=== PATIENT | male | born 1970 | race Caucasian/White ===

== ENCOUNTER → 2017-11-27 | Outpatient (CLI) | payer BC ==
--- NOTE | 2017-11-27 10:52 | XR ---
EXAMINATION TYPE: XR knee complete RT DATE OF EXAM: 11/27/2017 CLINICAL HISTORY: pain TECHNIQUE: Three views of the right knee are obtained. COMPARISON: None. FINDINGS: There is no acute fracture/dislocation. The tri-compartment joint spaces appear within no rmal limits. The overlying soft tissue appears unremarkable. IMPRESSION: There is no acute fracture or dislocation.ICD 10 NO FRACTURE, INITIAL EVALUATION
== END | disposition home or self-care (01) ==
LOC: RADXRMAIN 10:31
PROVIDERS: ATTEND Physician Assistant
DX: M79.604 Pain in right leg (principal)

== ENCOUNTER → 2018-09-28 | Outpatient (CLI) | payer BC ==
--- NOTE | 2018-09-28 19:26 | XR ---
EXAMINATION TYPE: XR skull complete DATE OF EXAM: 09/28/2018 COMPARISON: NONE HISTORY: Pain TECHNIQUE: 5 views submitted FINDINGS: There is a soft tissue density within the maxillary sinuses bilaterally. Nasal septal devia tion noted a suggestion of a deformity of the left mandibular condyle. IMPRESSION: 1. Findings are suspicious for a left mandibular fracture. Recommend CT of the facial bones. 2. Nonspecific soft tissue density in the maxillary sinuses could be postinflammatory, other etiologi es not excluded. Correlate clinically. A [place] level critical message alert has been initiated for Bert Daniel DO via the [facility] on 09/28/2018 7:22 PM. This message alert has been sent to Bert Evans nd, DO via the preferences provided by the clinician for the receipt of Radiology Critical Findings. Message ID [id number].
== END | disposition home or self-care (01) ==
LOC: RADXRMAIN 16:27
PROVIDERS: ATTEND Family Medicine
DX: R51 Headache (principal)
CPT/HCPCS: 70260

== ENCOUNTER → 2022-01-31 | Outpatient (CLI) | payer BC | END | disposition home or self-care (01) | LOC: RADMRIMAIN 15:25 | PROVIDERS: ATTEND Psychiatry & Neurology Neurology | DX: Z53.9 Procedure and treatment not carried out, unspecified reason (principal) ==

== ENCOUNTER → 2022-02-07 | Outpatient (CLI) | payer BC ==
--- NOTE | 2022-02-07 12:56 | MR ---
EXAMINATION TYPE: MR lumbar spine wo con DATE OF EXAM: 02/07/2022 COMPARISON: None HISTORY: Low back pain that radiates down left and right leg. TECHNIQUE: Multiplanar, multisequence images of the lumbar spine were acquired without IV contrast. FINDINGS: Lumbar segments are intact. No paraspinal masses are identified. Conus medullaris has a normal appe arance. Disc desiccation present at L5-S1 and L4-L5. Type II Modic changes at L5-S1. Straightening of the lumbar spine. No spondylolisthesis. L1-L2: Normal disc appearance without desiccation. No herniation, protrusion or disc bulging. No ca nal stenosis is present. Foramina are patent bilaterally. L2-L3: Normal disc appearance without desiccation. No herniation, protrusion or disc bulging. No ca nal stenosis is present. Foramina are patent bilaterally. L3-L4: Normal disc appearance without desiccation. No herniation, protrusion or disc bulging. No ca nal stenosis is present. Foramina are patent bilaterally. L4-L5: Right central disc protrusion with effacement of the exiting right L4 nerve root and traversin g L5 nerve root. Annular tear demonstrated. There is moderate effacement of the anterior thecal sac a t this level on the right. Facet arthropathy. Mild bilateral neural foraminal stenosis. L5-S1: Broad-based disc bulge without significant central canal stenosis. Facet arthropathy demonstra luke. Moderate bilateral neural foramen stenosis. a IMPRESSION: 1. L4-L5 disc herniation with moderate spinal canal stenosis and mild bilateral neuroforaminal steno sis at this level. 2. L5-S1 disc bulge and facet arthropathy with moderate bilateral neural foraminal stenosis.
== END | disposition home or self-care (01) ==
LOC: RADMRIMAIN 11:28
PROVIDERS: ATTEND Psychiatry & Neurology Neurology
DX: M51.26 Other intervertebral disc displacement, lumbar region (principal); M48.062 Spinal stenosis, lumbar region with neurogenic claudication; M99.73 Connective tissue and disc stenosis of intervertebral foramina of lumbar region; M51.27 Other intervertebral disc displacement, lumbosacral region; M48.061 Spinal stenosis, lumbar region without neurogenic claudication
CPT/HCPCS: 72148

== ENCOUNTER 2022-08-31 16:03 | Inpatient (IN) | payer BC, OTHER ==
--- NOTE | 2022-08-31 16:25 | ED ---
General Adult HPI - General Chief complaint: Seizure Stated complaint: Seizures Time Seen by Provider: 08/31/22 16:21 Source: patient, EMS Mode of arrival: EMS Limitations: no limitations - History of Present Illness Initial comments: Patient was transferred to our emergency department from the [facility] emergency department by ambulance. Patient reports presenting there after having a witnessed seizure earlier today (witnessed by his family while they were camping today). Per report from outside hospital, the patient's sodium was 118 today, and he has been treated with an IV normal saline drip. Patient states that he had a seizure once about a couple of years ago when his sodium was low as well. Patient denies having any other seizures, and he denies taking any antiepileptic medications. Patient admits to drinking about 5-6 be ers daily on average, and he states that his last drink was last night. Patient denies having any pain, fever or chills, head trauma or injury, headache, focal numbness/weakness/neuro deficit, visual changes, speech difficulty, neck/back/extremity pain, chest pain, dyspnea, cough or cold symptoms, palpitations, dizziness, abdominal pain, nausea/vomiting/diarrhea, bloody or melanotic stool, dysuria or urinary symptoms, or any other symptoms or complaints. Patient denies illicit drug use or medication abuse/overdose. Patient outside hospital labs were reviewed myself and are significant for a sodium of 118 and mildly elevated transaminases. - Related Data Allergies Allergy/AdvReac Type Severity Reaction Status Date / Time No Known Allergies Allergy Verified 08/31/22 16:22 Review of Systems ROS Statement: Those systems with pertinent positive or pertinent negative responses have been documented in the HPI. ROS Other: All systems not noted in ROS Statement are negative. Past Medical History Past Medical History: Hypertension History of Any Multi-Drug Resistant Organisms: None Reported Additional Past Surgical History / Comment(s): Left femur repair, December 2020 Past Psychological History: Anxiety Smoking Status: Current every day smoker Past Alcohol Use History: Daily Past Drug Use History: None Reported General Exam Limitations: no limitations General appearance: alert Head exam: Present: atraumatic, normocephalic Eye exam: Present: normal appearance, PERRL, EOMI ENT exam: Present: mucous membranes moist, TM's normal bilaterally Neck exam: Present: other (Trachea is in midline). Absent: tenderness, meningismus Respiratory exam: Present: normal lung sounds bilaterally. Absent: respiratory distress, wheezes, rales, rhonchi, stridor Cardiovascular Exam: Present: regular rate, normal rhythm, normal heart sounds, other (2+ radial pulses bilaterally) GI/Abdominal exam: Present: soft. Absent: distended, tenderness, guarding Extremities exam: Absent: tenderness, pedal edema Back exam: Present: normal inspection. Absent: tenderness Neurological exam: Present: alert, oriented X3, CN II-XII intact. Absent: motor sensory deficit Psychiatric exam: Present: normal affect, normal mood Skin exam: Present: warm, dry, intact, normal color Course Vital Signs 08/31/22 08/31/22 08/31/22 16:14 16:24 18:21 Temperature 98.3 F Pulse Rate 93 109 H Respiratory 20 Rate Blood Pressure 142/101 156/44 O2 Sat by Pulse 95 Oximetry - Reevaluation(s) Reevaluation #1: 08/31/22 18:59 Case, H&P, test results and ED management thus far were discussed with Dr. Piña. He accepts hospital admission. He recommends nephrology consultation. He has no further recommendations at this time. 08/31/22 19:15 Patient has not had any seizure activity while in the ED. Patient continues to have a normal/nonfocal neurological exam. Patient remains alert and breathing comfortably. Patient and family are aware of the patient's test results, and patient agrees with hospital admission at this time. EKG Findings - EKG Comments: EKG Findings:: ED physician interpretation (interpreted by me): EKG is somewhat limited due to motion, sinus tachycardia, ventricular rate 112 bpm, no ectopy, normal UT and QRS intervals, normal QT interval, normal axis, no definite ST or T-wave abnormality Medical Decision Making - Medical Decision Making Was pt. sent in by a medical professional or institution (, PA, WAD COMPRESSOR OPERATOR ADJUSTER, urgent care, hospital, or detention...) When possible be specific @ -Patient was sent from [facility] ED. Did you speak to anyone other than the patient for history (EMS, parent, family, police, friend...)? What history was obtained from this source @ -History was also obtained from the outside hospital transferring physician. Did you review nursing and triage notes (agree or disagree)? Why? @ -I reviewed and agree with nursing and triage notes Were old charts reviewed (outside hosp., previous admission, EMS record, old EKG, old radiological studies, urgent care reports/EKG's, detention records)? Report findings @ -I have reviewed the outside hospital records and lab results. Differential Diagnosis (chest pain, altered mental status, abdominal pain women, abdominal pain men, vaginal bleeding, weakness, fever, dyspnea, syncope, headache, dizziness, GI bleed, back pain, seizure, CVA, palpatations, mental health, musculoskeletal)? @ -Seizure, epilepsy, hyponatremia, drug abuse, drug withdrawal, alcohol withdrawal, alcohol abuse, electrolyte abnormality, hypoglycemia, hyperglycemia, dehydration, syncope, dysrhythmia EKG interpreted by me (3pts min.). @ -As above X-rays interpreted by me (1pt min.). @ -None done CT interpreted by me (1pt min.). @ -None done U/S interpreted by me (1pt. min.). @ -None done What testing was considered but not performed or refused? (CT, X-rays, U/S, labs)? Why? @ -None What meds were considered but not given or refused? Why? @ -None Did you discuss the management of the patient with other professionals (professionals i.e. , PA, WAD COMPRESSOR OPERATOR ADJUSTER, lab, RT, psych nurse, social science instructor, special day class teacher, teacher, life science technical officer, hospice case manager)? Give summary @ -As above Was smoking cessation discussed for >3mins.? @ -No Was critical care preformed (if so, how long)? @ -No Were there social determinants of health that impacted care today? How? (Homelessness, low income, unemployed, alcoholism, drug addiction, transportation, low edu. Level, literacy, decrease access to med. care, fci, rehab)? @ -No Was there de-escalation of care discussed even if they declined (Discuss DNR or withdrawal of care, Hospice)? DNR status @ -No What co-morbidities impacted this encounter? (DM, HTN, Smoking, COPD, CAD, Cancer, CVA, ARF, Chemo, Hep., AIDS, mental health diagnosis, sleep apnea, morbid obesity)? @ -Alcohol abuse Was patient admitted / discharged? Hospital course, mention meds given and route, prescriptions, significant lab abnormalities, going to OR and other pertinent info. @ -Patient has not had any seizure activity while in the ED. Patient's repeat sodium level has improved from 118 to 125. Will continue normal saline IV infusion therapy. Patient has also been treated with IV Ativan in the ED. Patient has a normal/nonfocal neurological exam. Patient denies head trauma/injury or headache. I do not feel that head imaging is indicated at this time. Will admit the patient to the hospital for continued management of his h yponatremia. Dr. Piña has accepted hospital admission. Undiagnosed new problem with uncertain prognosis? @ -No Drug Therapy requiring intensive monitoring for toxicity (Heparin, Nitro, Insulin, Cardizem)? @ -No Were any procedures done? @ -No Diagnosis/symptom? @ -Seizure Acute, or Chronic, or Acute on Chronic? @ -Acute Uncomplicated (without systemic symptoms) or Complicated (systemic symptoms)? @ -default Side effects of treatment? @ -No Exacerbation, Progression, or Severe Exacerbation? @ -No Poses a threat to life or bodily function? How? (Chest pain, [place], [place], pneumonia, PE, COPD, DKA, ARF, appy, cholecystitis, CVA, Diverticulitis, Homicidal, Suicidal, threat to staff... and all critical care pts) @ -No Diagnosis/symptom? @ -Hyponatremia Acute, or Chronic, or Acute on Chronic? @ -Acute Uncomplicated (without systemic symptoms) or Complicated (systemic symptoms)? @ -default Side effects of treatment? @ -none Exacerbation, Progression, or Severe Exacerbation] @ -no Poses a threat to life or bodily function? @ -no - Lab Data Result diagrams: 08/31/22 16:38 08/31/22 16:38 Lab Results 08/31/22 08/31/22 08/31/22 Range/Units 16:38 16:38 16:38 WBC 9.0 (3.8-10.6) k/uL RBC 3.66 L (4.30-5.90) m/uL Hgb 13.2 (13.0-17.5) gm/dL Hct 38.6 L (39.0-53.0) % MCV 105.6 H (80.0-100.0) fL MCH 36.1 H (25.0-35.0) pg MCHC 34.2 (31.0-37.0) g/dL RDW 13.2 (11.5-15.5) % Plt Count 197 (150-450) k/uL MPV 8.8 Neutrophils % 78 % Lymphocytes % 14 % Monocytes % 5 % Eosinophils % 2 % Basophils % 0 % Neutrophils # 7.0 (1.3-7.7) k/uL Lymphocytes # 1.3 (1.0-4.8) k/uL Monocytes # 0.4 (0-1.0) k/uL Eosinophils # 0.1 (0-0.7) k/uL Basophils # 0.0 (0-0.2) k/uL Macrocytosis Slight Sodium 125 L (137-145) mmol/L Potassium 4.9 (3.5-5.1) mmol/L Chloride 93 L (98-107) mmol/L Carbon Dioxide 21 L (22-30) mmol/L Anion Gap 11 mmol/L BUN 4 L (9-20) mg/dL Creatinine 0.56 L (0.66-1.25) mg/dL Est GFR (CKD-EPI)AfAm >90 (>60 ml/min/1.73 sqM) Est GFR (CKD-EPI)NonAf >90 (>60 ml/min/1.73 sqM) Glucose 92 (74-99) mg/dL Calcium 9.0 (8.4-10.2) mg/dL Magnesium 1.9 (1.6-2.3) mg/dL Total Bilirubin 1.0 (0.2-1.3) mg/dL AST 147 H (17-59) U/L ALT 108 H (4-49) U/L Alkaline Phosphatase 112 (38-126) U/L Total Protein 7.7 (6.3-8.2) g/dL Albumin 4.4 (3.5-5.0) g/dL Urine Opiates Screen Not Detected (NotDetected) Ur Oxycodone Screen Not Detected (NotDetected) Urine Methadone Screen Not Detected (NotDetected) Ur Propoxyphene Screen Not Detected (NotDetected) Ur Barbiturates Screen Not Detected (NotDetected) U Tricyclic Antidepress Not Detected (NotDetected) Ur Phencyclidine Scrn Not Detected (NotDetected) Ur Amphetamines Screen Not Detected (NotDetected) U Methamphetamines Scrn Not Detected (NotDetected) U Benzodiazepines Scrn Not Detected (NotDetected) Urine Cocaine Screen Not Detected (NotDetected) U Marijuana (THC) Screen Not Detected (NotDetected) Serum Alcohol <10 mg/dL Disposition Clinical Impression: Hyponatremia, Generalized seizure Disposition: ADMITTED IP TO THIS HOSP Condition: Stable Is patient prescribed a controlled substance at d/c from ED?: No Referrals: None,Stated [REFERRING] - 1-2 days Time of Disposition: 18:59
[2022-08-31] MEDS ORDERED: LORazepam 2 MG/ML INJ IV STA (16:31)
[2022-08-31 17:04] LABS: Basophils % (A) 0 %; Eosinophils # (A) 0.1 k/uL (0-0.7); Eosinophils % (A) 2 %; HCT 38.6 % (39.0-53.0); HGB 13.2 gm/dL (13.0-17.5); Lymphocytes # (A) 1.3 k/uL (1.0-4.8); Lymphocytes % (A) 14 %; MCH 36.1 pg (25.0-35.0); MCHC 34.2 g/dL (31.0-37.0); MCV 105.6 fL (80.0-100.0); Macrocytosis Slight; Mean Platelet Volume 8.8; Monocytes # (A) 0.4 k/uL (0-1.0); Monocytes % (A) 5 %; Neutrophils % (A) 78 %; Platelet Count 197 k/uL (150-450); RBC 3.66 m/uL (4.30-5.90); RDW 13.2 % (11.5-15.5)
[2022-08-31 17:18] LABS: Amphetamine Screen,Urine Not Detected (NotDetected); Barbiturate Screen,Urine Not Detected (NotDetected); Benzodiazepines Screen,Urine Not Detected (NotDetected); Cocaine Screen,Urine Not Detected (NotDetected); Methadone Screen, Urine Not Detected (NotDetected); Opiate Screen,Urine Not Detected (NotDetected); Oxycodone Screen, Urine Not Detected (NotDetected); Phencyclidine Screen,Urine Not Detected (NotDetected); Tricyclic Antidepressant,Urine Not Detected (NotDetected); Urn Cannabinoid Scrn Not Detected (NotDetected)
[2022-08-31 17:19] LABS: ALT 108 U/L (4-49); AST 147 U/L (17-59); African American GFR (CKD) >90 (>60 ml/min/1.73 sqM); Albumin 4.4 g/dL (3.5-5.0); Alcohol <10 mg/dL; Alkaline Phosphatase 112 U/L (38-126); Anion Gap 11 mmol/L; Blood Urea Nitrogen 4 mg/dL (9-20); Carbon Dioxide 21 mmol/L (22-30); Chloride 93 mmol/L (98-107); Glucose 92 mg/dL (74-99); Magnesium 1.9 mg/dL (1.6-2.3); Non-African American GFR(CKD) >90 (>60 ml/min/1.73 sqM); Potassium 4.9 mmol/L (3.5-5.1); Sodium 125 mmol/L (137-145); Total Protein 7.7 g/dL (6.3-8.2)
[2022-08-31] MEDS: SODIUM CHLORIDE 0.9% 1,000 ML IV SCH (17:23)
[2022-08-31] MEDS ORDERED: NALOXONE 0.4 MG/ML 1 ML VIAL IV PRN (18:59)
[2022-08-31] MEDS ORDERED: THIAMINE 100 MG/ML 2 ML VIAL IM STA (20:15)
[2022-08-31 20:28] LABS: Basophils % (A) 0 %; Eosinophils # (A) 0.2 k/uL (0-0.7); Eosinophils % (A) 2 %; HCT 35.4 % (39.0-53.0); HGB 12.7 gm/dL (13.0-17.5); Lymphocytes # (A) 0.9 k/uL (1.0-4.8); Lymphocytes % (A) 8 %; MCH 37.7 pg (25.0-35.0); MCHC 35.8 g/dL (31.0-37.0); MCV 105.3 fL (80.0-100.0); Macrocytosis Slight; Monocytes # (A) 0.4 k/uL (0-1.0); Monocytes % (A) 3 %; Neutrophils % (A) 86 %; Platelet Count 172 k/uL (150-450); RBC 3.36 m/uL (4.30-5.90); RDW 13.1 % (11.5-15.5); WBC 11.6 k/uL (3.8-10.6)
[2022-08-31] MEDS: LORazepam 2 MG/ML INJ IV PRN ×2 (20:35→23:54)
[2022-08-31 20:44] LABS: ALT 97 U/L (4-49); AST 134 U/L (17-59); African American GFR (CKD) >90 (>60 ml/min/1.73 sqM); Albumin 4.1 g/dL (3.5-5.0); Alkaline Phosphatase 97 U/L (38-126); Anion Gap 12 mmol/L; Blood Urea Nitrogen 5 mg/dL (9-20); Calcium 8.8 mg/dL (8.4-10.2); Carbon Dioxide 20 mmol/L (22-30); Chloride 94 mmol/L (98-107); Glucose 103 mg/dL (74-99); Non-African American GFR(CKD) >90 (>60 ml/min/1.73 sqM); Potassium 4.1 mmol/L (3.5-5.1); Sodium 126 mmol/L (137-145); Total Bilirubin 0.9 mg/dL (0.2-1.3); Total Protein 7.2 g/dL (6.3-8.2)
[2022-09-01] MEDS: SODIUM CHLORIDE 0.9% 1,000 ML IV SCH ×4 (01:31→22:59)
[2022-09-01] MEDS: LORazepam 2 MG/ML INJ IV PRN ×6 (08:22→22:55)
[2022-09-01] MEDS: THIAMINE 100 MG TAB PO SCH (08:22)
[2022-09-01] MEDS: NICOTINE 21MG/24HR PATCH TRANSDERM SCH (11:47)
[2022-09-01] MEDS: PANTOPRAZOLE 40 MG/10 ML VIAL IVP SCH (11:51)
--- NOTE | 2022-09-01 13:06 | P.HPIM ---
History of Present Illness 58-year-old male was transferred to [facility] after he had a seizure. Patient's seizures secondary to hyponatremia which is again secondary to excess be drinking. Patient is not willing to quit but his sodium is still l ow at 126. This came up from 118 in bit over 24 hours. Patient does smoke and half pack of cigarettes per day. Patient admits to drinking 67 beers but as per the family he drinks many more. Last drink was provided that is 2 days ago. REVIEW OF SYSTEMS: CONSTITUTIONAL: No fever, no malaise, no fatigue. HEENT: No recent visual problems or hearing problems. Denied any sore throat. CARDIOVASCULAR: No chest pain, orthopnea, PND, no palpitations, no syncope. PULMONARY: No shortness of breath, no cough, no hemoptysis. GASTROINTESTINAL: No diarrhea, no nausea, no vomiting, no abdominal pain. NEUROLOGICAL: No headaches, no weakness, no numbness. HEMATOLOGICAL: Denies any bleeding or petechiae. GENITOURINARY: Denies any burning micturition, frequency, or urgency. MUSCULOSKELETAL/RHEUMATOLOGICAL: Denies any joint pain, swelling, or any muscle pain. ENDOCRINE: Denies any polyuria or polydipsia. The rest of the 14-point review of systems is negative. PHYSICAL EXAMINATION: GENERAL: The patient is alert and oriented x3, not in any acute distress. Well developed, well nourished. Patient does have significant was consistent with alcohol withdrawal HEENT: Pupils are round and equally reacting to light. EOMI. No scleral icterus. No conjunctival pallor. Normocephalic, atraumatic. No pharyngeal erythema. No thyromegaly. CARDIOVASCULAR: S1 and S2 present. No murmurs, rubs, or gallops. PULMONARY: Chest is clear to auscultation, no wheezing or crackles. ABDOMEN: Soft, nontender, nondistended, normoactive bowel sounds. No palpable organomegaly. MUSCULOSKELETAL: No joint swelling or deformity. EXTREMITIES: No cyanosis, clubbing, or pedal edema. NEUROLOGICAL: Gross neurological examination did not reveal any focal deficits. SKIN: No rashes. Assessment and plan -Alcohol withdrawal seizures. For alcohol withdrawal with as needed Ativan in severity of protocol. Patient will be given IV fluids thiamine multivitamin supplementation. -Severe hyponatremia: Secondary to hypovolemia and Beer [place]. -Leukocytosis reactive -Sinus tachycardia secondary to alcohol withdrawal: We will use metoprolol. -Acute alcoholic hepatitis DVT prophylaxis: Lovenox GI prophylaxis: Protonix Past Medical History Past Medical History: Hypertension History of Any Multi-Drug Resistant Organisms: None Reported Additional Past Surgical History / Comment(s): Left femur repair, December 2020 Past Anesthesia/Blood Transfusion Reactions: No Reported Reaction Past Psychological History: Anxiety Smoking Status: Current every day smoker Past Alcohol Use History: Daily Past Drug Use History: None Reported Medications and Allergies Home Medications Medication Instructions Recorded Confirmed Type Ibuprofen [Motrin] 800 mg PO Q8H PRN 08/31/22 08/31/22 History Sodium Chloride Tab 1 gm PO BID 08/31/22 08/31/22 History amLODIPine [Norvasc] 5 mg PO W/SUPPER 08/31/22 08/31/22 History lisinopriL 40 mg PO DAILY 08/31/22 08/31/22 History Allergies Allergy/AdvReac Type Severity Reaction Status Date / Time No Known Allergies Allergy Verified 08/31/22 19:41 Physical Exam Vitals: Vital Signs Temp Pulse Pulse Resp BP BP Pulse Ox 09/01/22 13:04 98.2 F 95 18 127/78 98 09/01/22 12:47 98 09/01/22 07:56 97.6 F 106 H 18 129/86 95 09/01/22 01:45 98.7 F 104 H 20 118/78 96 08/31/22 22:48 122 H 08/31/22 21:15 99.0 F 123 H 20 124/77 95 08/31/22 20:11 126 H 16 122/79 95 08/31/22 18:21 109 H 08/31/22 16:24 98.3 F 156/44 08/31/22 16:14 93 20 142/101 95 Intake and Output 08/31/22 09/01/22 09/01/22 22:59 06:59 14:59 Intake Total 1170 Output Total 3 Balance 1167 Intake: Intake, IV Titration 1170 Amount Sodium Chloride 0.9% 1, 1170 000 ml @ 130 mls/hr IV . [facility] Rx[facility][id number] Output: Urine 3 Other: Voiding Method Urinal # Voids 3 # Bowel Movements 1 Weight 72.575 kg Results CBC & Chem 7: 08/31/22 19:22 08/31/22 19:22 Labs: Abnormal Lab Results - Last 24 Hours (Table) 08/31/22 08/31/22 08/31/22 Range/Units 16:38 16:38 19:22 WBC 11.6 H (3.8-10.6) k/uL RBC 3.66 L 3.36 L (4.30-5.90) m/uL Hgb 12.7 L (13.0-17.5) gm/dL Hct 38.6 L 35.4 L (39.0-53.0) % MCV 105.6 H 105.3 H (80.0-100.0) fL MCH 36.1 H 37.7 H (25.0-35.0) pg Neutrophils # 10.0 H (1.3-7.7) k/uL Lymphocytes # 0.9 L (1.0-4.8) k/uL Sodium 125 L (137-145) mmol/L Chloride 93 L (98-107) mmol/L Carbon Dioxide 21 L (22-30) mmol/L BUN 4 L (9-20) mg/dL Creatinine 0.56 L (0.66-1.25) mg/dL Glucose (74-99) mg/dL AST 147 H (17-59) U/L ALT 108 H (4-49) U/L 08/31/22 Range/Units 19:22 WBC (3.8-10.6) k/uL RBC (4.30-5.90) m/uL Hgb (13.0-17.5) gm/dL Hct (39.0-53.0) % MCV (80.0-100.0) fL MCH (25.0-35.0) pg Neutrophils # (1.3-7.7) k/uL Lymphocytes # (1.0-4.8) k/uL Sodium 126 L (137-145) mmol/L Chloride 94 L (98-107) mmol/L Carbon Dioxide 20 L (22-30) mmol/L BUN 5 L (9-20) mg/dL Creatinine 0.49 L (0.66-1.25) mg/dL Glucose 103 H (74-99) mg/dL AST 134 H (17-59) U/L ALT 97 H (4-49) U/L Thrombosis Risk Factor Assmnt - Choose All That Apply Any of the Below Risk Factors Present?: Yes Each Factor Represents 1 point: Age 41-60 years Other Risk Factors: No Other congenital or acquired thrombophilia - If yes, enter type in comment: No Thrombosis Risk Factor Assessment Total Risk Factor Score: 1 Thrombosis Risk Factor Assessment Level: Low Risk
[2022-09-01] MEDS ORDERED: LORazepam 2 MG/ML INJ IV STA (15:11)
[2022-09-01] MEDS ORDERED: LORazepam 2 MG/ML INJ IV PRN (15:15)
[2022-09-01] MEDS ORDERED: ONDANSETRON 4 MG/2 ML VIAL IVP PRN (15:16)
[2022-09-01] MEDS: chlordiazePOXIDE 25 MG CAP PO SCH ×2 (15:29→22:50)
--- NOTE | 2022-09-01 15:48 | P.NPCON ---
History of Present Illness - Reason for Consult Consult date: 09/01/22 hyponatremia - Chief Complaint Hyponatremia - History of Present Illness 52-year-old gentleman with a history of alcohol disorder, coming in with seizure. Serum sodium was 125. He is currently confused, in alcohol withdrawals. As per the family his last drink was Friday, he was camping with the family. Friday morning while he was making breakfast he had seizure-like episode and fell down. As per the family he also has history of hyponatremia in the past and was hospitalized to different places. No history of active cancers, diuretic use, antipsychotics or antidepressant use as per the family. He is on lisinopril and sodium chloride at home. Review of Systems Constitutional: Reports as per HPI Past Medical History Past Medical History: Hypertension History of Any Multi-Drug Resistant Organisms: None Reported Additional Past Surgical History / Comment(s): Left femur repair, December 2020 Past Anesthesia/Blood Transfusion Reactions: No Reported Reaction Past Psychological History: Anxiety Smoking Status: Current every day smoker Past Alcohol Use History: Daily Past Drug Use History: None Reported Medications and Allergies Home Medications Medication Instructions Recorded Confirmed Type Ibuprofen [Motrin] 800 mg PO Q8H PRN 08/31/22 08/31/22 History Sodium Chloride Tab 1 gm PO BID 08/31/22 08/31/22 History amLODIPine [Norvasc] 5 mg PO W/SUPPER 08/31/22 08/31/22 History lisinopriL 40 mg PO DAILY 08/31/22 08/31/22 History Allergies Allergy/AdvReac Type Severity Reaction Status Date / Time No Known Allergies Allergy Verified 08/31/22 19:41 Physical Exam Vitals: Vital Signs Temp Pulse Pulse Resp BP BP Pulse Ox 09/01/22 14:56 105 H 130/64 09/01/22 13:04 98.2 F 95 18 127/78 98 09/01/22 12:47 98 09/01/22 07:56 97.6 F 106 H 18 129/86 95 09/01/22 01:45 98.7 F 104 H 20 118/78 96 08/31/22 22:48 122 H 08/31/22 21:15 99.0 F 123 H 20 124/77 95 08/31/22 20:11 126 H 16 122/79 95 08/31/22 18:21 109 H 08/31/22 16:24 98.3 F 156/44 08/31/22 16:14 93 20 142/101 95 Intake and Output 09/01/22 09/01/22 09/01/22 06:59 14:59 22:59 Intake Total 1170 Output Total 3 Balance 1167 Intake: Intake, IV Titration 1170 Amount Sodium Chloride 0.9% 1, 1170 000 ml @ 130 mls/hr IV . Q7H42M [facility] Rx#:[id number] Output: Urine 3 Other: Voiding Method Urinal # Voids 3 # Bowel Movements 1 Confused S1-S2 heard Lungs clear No edema Results - Lab Results Most recent lab results Calcium 8.8 mg/dL (8.4-10.2) 08/31/22 19:22 Magnesium 1.9 mg/dL (1.6-2.3) 08/31/22 16:38 08/31/22 19:22 08/31/22 19:22 Assessment and Plan Assessment: #1 acute on chronic hyponatremia multifactorial. -Suspect beer proteinemia -Rule out SIADH #2 hypertension on lisinopril -Lisinopril is also notorious to cause hyponatremia. #3 alcohol withdrawal state. Plan: #1 currently on IV fluids at 1:30 ML's an hour. #2 admission sodium was 125 at 4 PM and repeat sodium at 7 PM was 126. No repeat labs since then. #3 stat BMP and urine studies. Based on the repeat labs discontinue IV fluids if sodium is rapidly rising. #4 supportive care
[2022-09-01 16:56] LABS: African American GFR (CKD) >90 (>60 ml/min/1.73 sqM); Anion Gap 8 mmol/L; Blood Urea Nitrogen 6 mg/dL (9-20); Calcium 8.1 mg/dL (8.4-10.2); Carbon Dioxide 22 mmol/L (22-30); Chloride 97 mmol/L (98-107); Glucose 87 mg/dL (74-99); Non-African American GFR(CKD) >90 (>60 ml/min/1.73 sqM); Potassium 3.6 mmol/L (3.5-5.1); Sodium 127 mmol/L (137-145); Uric Acid 4.2 mg/dL (3.5-8.5)
[2022-09-01 17:24] LABS: Appearance,Urine Clear (Clear); Bilirubin,Urine Negative (Negative); Blood,Urine Negative (Negative); Color,Urine Yellow; Glucose,Urine (UA) Negative (Negative); Ketones,Urine 1+ (Negative); Leukocyte Esterase,Urine Negative (Negative); Nitrite,Urine Negative (Negative); PH, Urine 6.5 (5.0-8.0); Protein,Urine Negative (Negative); Specific Gravity,Urine 1.013 (1.001-1.035)
[2022-09-01] MEDS: METOPROLOL TARTRATE 25 MG TAB PO SCH (22:50)
[2022-09-02] MEDS: LORazepam 2 MG/ML INJ IV PRN ×6 (02:24→23:00)
[2022-09-02] MEDS: SODIUM CHLORIDE 0.9% 1,000 ML IV SCH ×2 (06:12→14:18)
[2022-09-02] MEDS: METOPROLOL TARTRATE 25 MG TAB PO SCH ×2 (08:29→21:04)
[2022-09-02] MEDS: ENOXAPARIN 40 MG/0.4 ML SYRINGE SQ SCH (08:29)
[2022-09-02] MEDS: THIAMINE 100 MG TAB PO SCH (08:29)
[2022-09-02] MEDS: NICOTINE 21MG/24HR PATCH TRANSDERM SCH (08:30)
[2022-09-02] MEDS: PANTOPRAZOLE 40 MG/10 ML VIAL IVP SCH (08:30)
[2022-09-02] MEDS: chlordiazePOXIDE 25 MG CAP PO SCH ×3 (08:38→21:04)
[2022-09-02 09:40] LABS: HCT 35.8 % (39.0-53.0); HGB 11.8 gm/dL (13.0-17.5); MCH 35.9 pg (25.0-35.0); MCHC 32.9 g/dL (31.0-37.0); MCV 109.2 fL (80.0-100.0); Macrocytosis Marked; Mean Platelet Volume 9.2; Platelet Count 205 k/uL (150-450); RBC 3.28 m/uL (4.30-5.90); RDW 13.1 % (11.5-15.5); WBC 8.7 k/uL (3.8-10.6)
[2022-09-02 10:01] LABS: African American GFR (CKD) >90 (>60 ml/min/1.73 sqM); Anion Gap 9 mmol/L; Blood Urea Nitrogen 5 mg/dL (9-20); Calcium 8.4 mg/dL (8.4-10.2); Carbon Dioxide 21 mmol/L (22-30); Chloride 98 mmol/L (98-107); Glucose 117 mg/dL (74-99); Non-African American GFR(CKD) >90 (>60 ml/min/1.73 sqM); Potassium 3.9 mmol/L (3.5-5.1); Sodium 128 mmol/L (137-145)
--- NOTE | 2022-09-02 11:31 | P.PN ---
Subjective Patient is seen for follow-up for hyponatremia. Positive history of alcohol abuse. Currently maintained on normal saline with continued improvement in serum sodium. Urine osmolality was 542 with random urine sodium of 110. Sodium is 128 today. No significant complaints. Patient states he has not been eating much. Objective - Vital Signs Vital signs: Vital Signs Temp 98.2 F 09/02/22 08:00 Pulse 93 09/02/22 08:00 Resp 18 09/02/22 08:00 BP 141/93 09/02/22 08:00 Pulse Ox 99 09/02/22 08:00 FiO2 Intake & Output 09/01/22 09/02/22 09/02/22 18:59 06:59 18:59 Output Total 600 650 Balance -600 -650 Output: Urine 600 650 Other: Voiding Method Urinal Urinal - Exam Awake, comfortable, no acute distress Examination of the heart S1 and S2 Examination of the lungs bilateral breath sounds are heard Abdomen is soft nontender Examination of the lower extremities shows no evidence of edema LITHOGRAPH [employer]ESS FEEDER exam grossly intact - Labs CBC & Chem 7: 09/02/22 09:03 09/02/22 09:03 Labs: Abnormal Lab Results - Last 24 Hours (Table) 09/01/22 09/01/22 09/02/22 Range/Units 15:46 16:30 09:03 RBC 3.28 L (4.30-5.90) m/uL Hgb 11.8 L (13.0-17.5) gm/dL Hct 35.8 L (39.0-53.0) % MCV 109.2 H (80.0-100.0) fL MCH 35.9 H (25.0-35.0) pg Macrocytosis Marked A Sodium 127 L (137-145) mmol/L Chloride 97 L (98-107) mmol/L Carbon Dioxide (22-30) mmol/L BUN 6 L (9-20) mg/dL Creatinine 0.56 L (0.66-1.25) mg/dL Glucose (74-99) mg/dL Osmolality 260 L (280-301) mosm/kg Calcium 8.1 L (8.4-10.2) mg/dL Urine Ketones 1+ H (Negative) 09/02/22 Range/Units 09:03 RBC (4.30-5.90) m/uL Hgb (13.0-17.5) gm/dL Hct (39.0-53.0) % MCV (80.0-100.0) fL MCH (25.0-35.0) pg Macrocytosis Sodium 128 L (137-145) mmol/L Chloride (98-107) mmol/L Carbon Dioxide 21 L (22-30) mmol/L BUN 5 L (9-20) mg/dL Creatinine 0.50 L (0.66-1.25) mg/dL Glucose 117 H (74-99) mg/dL Osmolality (280-301) mosm/kg Calcium (8.4-10.2) mg/dL Urine Ketones (Negative) Assessment and Plan Assessment: 1. Hyponatremia associated with excessive alcohol intake, currently improving with normal saline 2. Hypertension, controlled 3. Alcohol withdrawal seizures 4. Acute alcoholic hepatitis Plan: Continue normal saline Encourage increased oral intake Repeat sodium in a.m.
[2022-09-03] MEDS: LORazepam 2 MG/ML INJ IV PRN ×7 (00:19→21:11)
[2022-09-03] MEDS: SODIUM CHLORIDE 0.9% 1,000 ML IV SCH ×2 (02:10→17:24)
[2022-09-03] MEDS ORDERED: LORazepam 0.5 MG TAB PO PRN (05:38)
--- NOTE | 2022-09-03 06:00 | P.PN ---
Subjective Progress Note Date: 09/02/22 58-year-old male was transferred to [facility] after he had a seizure. Patient's seizures secondary to hyponatremia which is again secondary to excess be drinking. Patient is not willing to quit but his sodium is still low at 126. This came up from 118 in bit over 24 hours. Patient does smoke and half pack of cigarettes per day. Patient admits to drinking 67 beers but as per the family he drinks many more. Last drink was provided that is 2 days ago. 09/02/2022 Patient seen and evaluated in follow-up being maintained on CIWA protocol and per nursing staff continues to receive IV Ativan. Sodium slightly improved at 128 today with nephrology following. Patient clinically improving and will follow-up with repeat labs. Discussed with the patient along with at the bedside about alcohol rehab and discontinuing alcohol abuse and patient refuses. Patient is maintained on Librium and will continue taper. Recommend PT/OT therapy evaluation is nursing staff reports gait is extremely unsteady. Patient is afebrile denies chest pain or shortness of breath. Patient reports to not eating much denies nausea or vomiting. Review of systems: Constitutional: No reports of fatigue, fever, or chills Cardiovascular: No reports of chest pain or palpitations Respiratory: No reports of shortness of breath or cough GI: No reports of nausea, vomiting, or diarrhea : No reports of dysuria or retention Neurovascular: No reports of weakness or numbness All medications have been reviewed PHYSICAL EXAMINATION: GENERAL: The patient is alert and oriented x3, thin built, cachectic. HEENT: Pupils are round and equally reacting to light. EOMI. No scleral icterus. No conjunctival pallor. Normocephalic, atraumatic. No pharyngeal erythema. No thyromegaly. CARDIOVASCULAR: S1 and S2 present. No murmurs, rubs, or gallops. PULMONARY: Chest is clear to auscultation, no wheezing or crackles. ABDOMEN: Soft, nontender, nondistended, normoactive bowel sounds. No palpable organomegaly. MUSCULOSKELETAL: No joint swelling or deformity. EXTREMITIES: No cyanosis, clubbing, or pedal edema. NEUROLOGICAL: Gross neurological examination did not reveal any focal deficits. Diffusely weak SKIN: No rashes. Assessment: -Alcohol withdrawal seizures. -Severe hyponatremia: Secondary to hypovolemia and Beer Pot[place]ia. Improving at 128 today -Leukocytosis reactive -Sinus tachycardia secondary to alcohol withdrawal -Acute alcoholic hepatitis -DVT prophylaxis: Lovenox -GI prophylaxis: Protonix Plan: For alcohol withdrawal with as needed Ativan in severity of protocol. Patient will be given IV fluids thiamine multivitamin supplementation. Patient also started on Librium taper and will add oral Ativan. Nephrology following maintained on normal saline showing some improvement in sodium at 128 today Continue seizure precautions and per nursing staff there has been no further seizure-like activity noted Discussed with the patient at length about discontinuing and complete cessation of alcohol use patient is refusing does not want to go to rehab. Will follow-up on repeat labs in a.m. Patient with unsteady gait recommend PT/OT therapy evaluation Possible discharge in the next 24-48 hours The impression and plan of care has been dictated by Candelaria Ashby, Nurse Practitioner as directed. Dr. Catalina MD I have performed a history and examination and MDM of this patient, discussed the same with the dictator, and agree with the dictator's assessment and plan as written ,documented as a scribe. Based on total visit time, I have performed more than 50% of the visit. Objective - Vital Signs Vital signs: Vital Signs Temp 98.2 F 09/02/22 08:00 Pulse 93 09/02/22 08:00 Resp 18 09/02/22 08:00 BP 141/93 09/02/22 08:00 Pulse Ox 99 09/02/22 08:00 FiO2 Intake & Output 09/01/22 09/02/22 09/02/22 18:59 06:59 18:59 Output Total 600 650 Balance -600 -650 Output: Urine 600 650 Other: Voiding Method Urinal Urinal - Labs CBC & Chem 7: 09/02/22 09:03 09/02/22 09:03 Labs: Abnormal Lab Results - Last 24 Hours (Table) 09/01/22 09/01/22 09/02/22 Range/Units 15:46 16:30 09:03 RBC 3.28 L (4.30-5.90) m/uL Hgb 11.8 L (13.0-17.5) gm/dL Hct 35.8 L (39.0-53.0) % MCV 109.2 H (80.0-100.0) fL MCH 35.9 H (25.0-35.0) pg Macrocytosis Marked A Sodium 127 L (137-145) mmol/L Chloride 97 L (98-107) mmol/L Carbon Dioxide (22-30) mmol/L BUN 6 L (9-20) mg/dL Creatinine 0.56 L (0.66-1.25) mg/dL Glucose (74-99) mg/dL Osmolality 260 L (280-301) mosm/kg Calcium 8.1 L (8.4-10.2) mg/dL Urine Ketones 1+ H (Negative) 09/02/22 Range/Units 09:03 RBC (4.30-5.90) m/uL Hgb (13.0-17.5) gm/dL Hct (39.0-53.0) % MCV (80.0-100.0) fL MCH (25.0-35.0) pg Macrocytosis Sodium 128 L (137-145) mmol/L Chloride (98-107) mmol/L Carbon Dioxide 21 L (22-30) mmol/L BUN 5 L (9-20) mg/dL Creatinine 0.50 L (0.66-1.25) mg/dL Glucose 117 H (74-99) mg/dL Osmolality (280-301) mosm/kg Calcium (8.4-10.2) mg/dL Urine Ketones (Negative)
[2022-09-03] MEDS: PANTOPRAZOLE 40 MG/10 ML VIAL IVP SCH (09:00)
[2022-09-03] MEDS: METOPROLOL TARTRATE 25 MG TAB PO SCH ×2 (09:00→21:11)
[2022-09-03] MEDS: NICOTINE 21MG/24HR PATCH TRANSDERM SCH (09:00)
[2022-09-03] MEDS: ENOXAPARIN 40 MG/0.4 ML SYRINGE SQ SCH (09:00)
[2022-09-03] MEDS: THIAMINE 100 MG TAB PO SCH (09:00)
[2022-09-03] MEDS: chlordiazePOXIDE 25 MG CAP PO SCH ×3 (09:00→21:11)
--- NOTE | 2022-09-03 11:54 | P.PN ---
Subjective Patient is seen for follow-up for hyponatremia. Positive history of alcohol abuse. Currently maintained on normal saline with continued improvement in serum sodium. Urine osmolality was 542 with random urine sodium of 110. Sodium is 128 yesterday No significant complaints. Patient states he has not been eating much. Objective - Vital Signs Vital signs: Vital Signs Temp 98.1 F 09/03/22 11:13 Pulse 88 09/03/22 11:13 Resp 20 09/03/22 11:13 BP 146/89 09/03/22 11:13 Pulse Ox 98 09/03/22 11:13 FiO2 Intake & Output 09/02/22 09/03/22 09/03/22 18:59 06:59 18:59 Output Total 350 Balance -350 Output: Urine 350 Other: Voiding Method Urinal # Bowel Movements 1 - Exam Awake, comfortable, no acute distress Examination of the heart S1 and S2 Examination of the lungs bilateral breath sounds are heard Abdomen is soft nontender Examination of the lower extremities shows no evidence of edema BOARD CERTIFIED MUSIC THERAPIST exam grossly intact - Labs CBC & Chem 7: 09/02/22 09:03 09/02/22 09:03 Assessment and Plan Assessment: 1. Hyponatremia associated with excessive alcohol intake, currently improving with normal saline 2. Hypertension, controlled 3. Alcohol withdrawal seizures 4. Acute alcoholic hepatitis Plan: Continue normal saline Encourage increased oral intake Follow-up on sodium from today
[2022-09-03 12:52] LABS: African American GFR (CKD) >90 (>60 ml/min/1.73 sqM); Anion Gap 12 mmol/L; Blood Urea Nitrogen 4 mg/dL (9-20); Calcium 9.1 mg/dL (8.4-10.2); Carbon Dioxide 21 mmol/L (22-30); Chloride 96 mmol/L (98-107); Glucose 106 mg/dL (74-99); Magnesium 1.5 mg/dL (1.6-2.3); Non-African American GFR(CKD) >90 (>60 ml/min/1.73 sqM); Potassium 3.9 mmol/L (3.5-5.1); Sodium 129 mmol/L (137-145)
[2022-09-03] MEDS ORDERED: Magnesium Replacement Protocol 1 EACH MISC MISCELLANE PRN (13:31)
--- NOTE | 2022-09-03 14:24 | XR ---
EXAMINATION TYPE: XR chest 1V portable DATE OF EXAM: 09/03/2022 Comparison: None Clinical History: 52-year-old male short of breath Findings: Heart normal size. Aorta and pulmonary vasculature within normal limits. Hyperinflation. No consolida tion or pleural effusion. Impression: COPD. No acute process seen.
[2022-09-03] MEDS: MAGNESIUM SULFATE-D5W PMX 1 GM in DEXTROSE/WATER 1 100ML.BAG IVPB SCH ×2 (15:34→17:13)
[2022-09-03] MEDS ORDERED: LORazepam 1 MG TAB PO PRN (20:21)
--- NOTE | 2022-09-03 20:27 | P.PN ---
Subjective Progress Note Date: 09/03/22 58-year-old male was transferred to [facility] after he had a seizure. Patient's seizures secondary to hyponatremia which is again secondary to excess be drinking. Patient is not willing to quit but his sodium is still low at 126. This came up from 118 in bit over 24 hours. Patient does smoke and half pack of cigarettes per day. Patient admits to drinking 67 beers but as per the family he drinks many more. Last drink was provided that is 2 days ago. 09/02/2022 Patient seen and evaluated in follow-up being maintained on CIWA protocol and per nursing staff continues to receive IV Ativan. Sodium slightly improved at 128 today with nephrology following. Patient clinically improving and will follow-up with repeat labs. Discussed with the patient along with at the bedside about alcohol rehab and discontinuing alcohol abuse and patient refuses. Patient is maintained on Librium and will continue taper. Recommend PT/OT therapy evaluation is nursing staff reports gait is extremely unsteady. Patient is afebrile denies chest pain or shortness of breath. Patient reports to not eating much denies nausea or vomiting. 09/03/2022 Patient is seen and evaluated in follow-up today continue to require IV Ativan and have discussed with nursing staff about using oral Ativan as needed and continuing Librium taper. Patient's sodium is 129 today with nephrology following and patient reports he feels ready to go home. at the bedside reports he can't walk and was almost maximum assist getting up out of the bed. Patient refusing rehab for alcohol rehab at this point. Magnesium at 1.5 and will replace and recommend all of labs in a.m. Recommend PT/OT therapy eval uation again tomorrow. Patient is afebrile denies chest pain or shortness of breath. Patient not eating much and encouraged oral intake and denies any nausea or vomiting. Review of systems: Constitutional: No reports of fatigue, fever, or chills Cardiovascular: No reports of chest pain or palpitations Respiratory: No reports of shortness of breath or cough GI: No reports of nausea, vomiting, or diarrhea : No reports of dysuria or retention Neurovascular: No reports of weakness although unable to walk without maximum assist per and physical therapy at bedside All medications have been reviewed PHYSICAL EXAMINATION: GENERAL: The patient is alert and oriented x3, thin built, cachectic. HEENT: Pupils are round and equally reacting to light. EOMI. No scleral icterus. No conjunctival pallor. Normocephalic, atraumatic. No pharyngeal erythema. No thyromegaly. CARDIOVASCULAR: S1 and S2 present. No murmurs, rubs, or gallops. PULMONARY: Chest is clear to auscultation, no wheezing or crackles. ABDOMEN: Soft, nontender, nondistended, normoactive bowel sounds. No palpable organomegaly. MUSCULOSKELETAL: No joint swelling or deformity. EXTREMITIES: No cyanosis, clubbing, or pedal edema. NEUROLOGICAL: Gross neurological examination did not reveal any focal deficits. Diffusely weak SKIN: No rashes. Assessment: -Alcohol withdrawal seizures. -Severe hyponatremia: Secondary to hypovolemia and Beer [place]ia. Improving at 129 today -Leukocytosis reactive -Sinus tachycardia secondary to alcohol withdrawal -Acute alcoholic hepatitis -Gait dysfunction -DVT prophylaxis: Lovenox -GI prophylaxis: Protonix Plan: For alcohol withdrawal continue with as needed Ativan in severity of protocol. Patient will be given IV fluids thiamine multivitamin supplementation. Patient also started on Librium taper and will continue oral Ativan. Discussed with nursing staff about weaning IV Ativan Nephrology following maintained on normal saline showing some improvement in sodium at 129 today Magnesium is 1.5 and will replace per protocol. Encouraged oral intake Continue seizure precautions and per nursing staff there has been no further seizure-like activity noted Discussed with the patient at length about discontinuing and complete cessation of alcohol use patient is refusing and does not want to go to rehab. Recommend PT/OT therapy daily as patient is having difficulty with ambulation and at bedside reports he is unable to walk to the bathroom. Will follow-up on repeat labs in a.m. Possible discharge in the next 24-48 hours if able to walk The impression and plan of care has been dictated by Candelaria Ashby, Nurse Practitioner as directed. Dr. Wang MD I have performed a history and examination and MDM of this patient, discussed the same with the dictator, and agree with the dictator's assessment and plan as written ,documented as a scribe. Based on total visit time, I have performed more than 50% of the visit. Objective - Vital Signs Vital signs: Vital Signs Temp 98.1 F 09/03/22 11:13 Pulse 88 09/03/22 11:13 Resp 20 09/03/22 11:13 BP 146/89 09/03/22 11:13 Pulse Ox 98 09/03/22 11:13 FiO2 Intake & Output 09/02/22 09/03/22 09/03/22 18:59 06:59 18:59 Output Total 350 Balance -350 Output: Urine 350 Other: Voiding Method Urinal # Bowel Movements 1 - Labs CBC & Chem 7: 09/02/22 09:03 09/03/22 12:16 Labs: Abnormal Lab Results - Last 24 Hours (Table) 09/03/22 Range/Units 12:16 Sodium 129 L (137-145) mmol/L Chloride 96 L (98-107) mmol/L Carbon Dioxide 21 L (22-30) mmol/L BUN 4 L (9-20) mg/dL Creatinine 0.52 L (0.66-1.25) mg/dL Glucose 106 H (74-99) mg/dL Magnesium 1.5 L (1.6-2.3) mg/dL
[2022-09-04] MEDS: SODIUM CHLORIDE 0.9% 1,000 ML IV SCH ×2 (03:24→21:44)
[2022-09-04] MEDS: MULTIVITAMINS, THERA 1 EACH TAB PO SCH (08:34)
[2022-09-04] MEDS: ENOXAPARIN 40 MG/0.4 ML SYRINGE SQ SCH (08:34)
[2022-09-04] MEDS: PANTOPRAZOLE 40 MG/10 ML VIAL IVP SCH (08:34)
[2022-09-04] MEDS: METOPROLOL TARTRATE 25 MG TAB PO SCH ×2 (08:34→22:11)
[2022-09-04] MEDS: NICOTINE 21MG/24HR PATCH TRANSDERM SCH (08:34)
[2022-09-04] MEDS: THIAMINE 100 MG TAB PO SCH (08:34)
[2022-09-04] MEDS: FOLIC ACID 1 MG TAB PO SCH (08:34)
[2022-09-04] MEDS: chlordiazePOXIDE 25 MG CAP PO SCH ×3 (09:03→22:11)
--- NOTE | 2022-09-04 11:33 | P.PN ---
Subjective Patient is seen for follow-up for hyponatremia. Positive history of alcohol abuse. Currently maintained on normal saline with continued improvement in serum sodium. Urine osmolality was 542 with random urine sodium of 110. Sodium is 129 yesterday No significant complaints. Patient states he has not been eating much. Objective - Vital Signs Vital signs: Vital Signs Temp 96.8 F L 09/04/22 08:30 Pulse 94 09/04/22 08:30 Resp 20 09/04/22 08:30 BP 138/86 09/04/22 08:30 Pulse Ox 95 09/04/22 09:30 FiO2 Intake & Output 09/03/22 09/04/22 09/04/22 18:59 06:59 18:59 Intake Total 10 50 Output Total 200 Balance -190 50 Intake: IV 10 Invasive Line 3 10 Oral 50 Output: Urine 200 Other: Voiding Method Urinal Urinal # Voids 2 # Bowel Movements 1 - Exam Awake, comfortable, no acute distress Examination of the heart S1 and S2 Examination of the lungs bilateral breath sounds are heard Abdomen is soft nontender Examination of the lower extremities shows no evidence of edema GLASS BLOWER exam grossly intact - Labs CBC & Chem 7: 09/02/22 09:03 09/03/22 12:16 Labs: Abnormal Lab Results - Last 24 Hours (Table) 09/03/22 Range/Units 12:16 Sodium 129 L (137-145) mmol/L Chloride 96 L (98-107) mmol/L Carbon Dioxide 21 L (22-30) mmol/L BUN 4 L (9-20) mg/dL Creatinine 0.52 L (0.66-1.25) mg/dL Glucose 106 H (74-99) mg/dL Magnesium 1.5 L (1.6-2.3) mg/dL Assessment and Plan Assessment: 1. Hyponatremia associated with excessive alcohol intake, currently improving with normal saline 2. Hypertension, controlled 3. Alcohol withdrawal seizures 4. Acute alcoholic hepatitis Plan: Continue normal saline Encourage increased oral intake Follow-up on sodium from today
[2022-09-04 12:18] LABS: African American GFR (CKD) >90 (>60 ml/min/1.73 sqM); Anion Gap 8 mmol/L; Blood Urea Nitrogen 4 mg/dL (9-20); Calcium 8.1 mg/dL (8.4-10.2); Carbon Dioxide 23 mmol/L (22-30); Chloride 99 mmol/L (98-107); Glucose 105 mg/dL (74-99); Magnesium 1.6 mg/dL (1.6-2.3); Non-African American GFR(CKD) >90 (>60 ml/min/1.73 sqM); Potassium 3.4 mmol/L (3.5-5.1); Sodium 130 mmol/L (137-145)
[2022-09-04] MEDS: LORazepam 2 MG/ML INJ IV PRN (12:48)
[2022-09-04] MEDS ORDERED: Potassium Replacement Protocol 1 EACH MISC MISCELLANE PRN (15:37)
[2022-09-04] MEDS ORDERED: Magnesium Replacement Protocol 1 EACH MISC MISCELLANE PRN (15:37)
--- NOTE | 2022-09-04 15:37 | P.PN ---
Subjective Progress Note Date: 09/04/22 58-year-old male was transferred to [facility] after he had a seizure. Patient's seizures secondary to hyponatremia which is again secondary to excess be drinking. Patient is not willing to quit but his sodium is still low at 126. This came up from 118 in bit over 24 hours. Patient does smoke and half pack of cigarettes per day. Patient admits to drinking 67 beers but as per the family he drinks many more. Last drink was provided that is 2 days ago. 09/02/2022 Patient seen and evaluated in follow-up being maintained on CIWA protocol and per nursing staff continues to receive IV Ativan. Sodium slightly improved at 128 today with nephrology following. Patient clinically improving and will follow-up with repeat labs. Discussed with the patient along with at the bedside about alcohol rehab and discontinuing alcohol abuse and patient refuses. Patient is maintained on Librium and will continue taper. Recommend PT/OT therapy evaluation is nursing staff reports gait is extremely unsteady. Patient is afebrile denies chest pain or shortness of breath. Patient reports to not eating much denies nausea or vomiting. 09/03/2022 Patient is seen and evaluated in follow-up today continue to require IV Ativan and have discussed with nursing staff about using oral Ativan as needed and continuing Librium taper. Patient's sodium is 129 today with nephrology following and patient reports he feels ready to go home. at the bedside reports he can't walk and was almost maximum assist getting up out of the bed. Patient refusing rehab for alcohol rehab at this point. Magnesium at 1.5 and will replace and recommend all of labs in a.m. Recommend PT/OT therapy eval uation again tomorrow. Patient is afebrile denies chest pain or shortness of breath. Patient not eating much and encouraged oral intake and denies any nausea or vomiting. 09/04/2022 Patient is seen in follow-up today maintained on CIWA protocol per nursing staff only received 1 dose of Ativan overnight and patient reports he is feeling fine ready to go home. Patient work with physical therapy again as he is unable to walk on his own with case management following working on possible Homecare rehab and attempting to get a walker. Patient at bedside feels patient is unsafe to return home at this time and patient does continue with some confusion per nursing staff. Patient chest x-ray showing COPD changes with no acute process noted. Awaiting labs from this morning as magnesium was replaced yesterday at 1.5. Potassium is 3.4 and will replace and sodium is improved slightly at 130 today. Will follow-up with repeat labs in the a.m. Recommend physical therapy evaluation tomorrow with possible discharge in 24 hours. Review of systems: Constitutional: No reports of fatigue, fever, or chills Cardiovascular: No reports of chest pain or palpitations Respiratory: No reports of shortness of breath or cough GI: No reports of nausea, vomiting, or diarrhea : No reports of dysuria or retention Neurovascular: No reports of weakness although unable to walk without maximum assist per and physical therapy at bedside All medications have been reviewed PHYSICAL EXAMINATION: GENERAL: The patient is alert and oriented x3, thin built, cachectic. HEENT: Pupils are round and equally reacting to light. EOMI. No scleral icterus. No conjunctival pallor. Normocephalic, atraumatic. No pharyngeal erythema. No thyromegaly. CARDIOVASCULAR: S1 and S2 present. No murmurs, rubs, or gallops. PULMONARY: Chest is clear to auscultation, no wheezing or crackles. ABDOMEN: Soft, nontender, nondistended, normoactive bowel sounds. No palpable organomegaly. MUSCULOSKELETAL: No joint swelling or deformity. EXTREMITIES: No cyanosis, clubbing, or pedal edema. NEUROLOGICAL: Gross neurological examination did not reveal any focal deficits. Diffusely weak SKIN: No rashes. Assessment: -Alcohol withdrawal seizures. -Severe hyponatremia: Secondary to hypovolemia and Beer [place]ia. Improving at 130 today -Hypomagnesemia -Leukocytosis reactive -Sinus tachycardia secondary to alcohol withdrawal -Acute alcoholic hepatitis -Gait dysfunction -DVT prophylaxis: Lovenox -GI prophylaxis: Protonix -Full code Plan: For alcohol withdrawal continue with as needed Ativan in severity of protocol. Patient will be given IV fluids thiamine multivitamin supplementation. Patient continued on Librium taper and will continue oral Ativan. Discussed with nursing staff about weaning IV Ativan Nephrology following maintained on normal saline showing some improvement in sodium at 130 today Magnesium is 1.6 and will replace per protocol. Encouraged oral intake Continue seizure precautions and per nursing staff there has been no further seizure-like activity noted Discussed with the patient at length about discontinuing and complete cessation of alcohol use patient is refusing and does not want to go to rehab. Recommend PT/OT therapy daily as patient is having difficulty with ambulation and at bedside reports he is unable to walk to the bathroom. Case management following arranging for Homecare rehab as well as obtaining a walker as patient continues to have extremely unsteady gait Will follow-up on repeat labs in a.m. Possible discharge in the next 24 hours The impression and plan of care has been dictated by Candelaria Ashby, Nurse Practitioner as directed. Dr. Wang MD I have performed a history and examination and MDM of this patient, discussed the same with the dictator, and agree with the dictator's assessment and plan as written ,documented as a scribe. Based on total visit time, I have performed more than 50% of the visit. Objective - Vital Signs Vital signs: Vital Signs Temp 96.8 F L 09/04/22 08:30 Pulse 87 09/04/22 12:45 Resp 20 09/04/22 12:45 BP 139/83 09/04/22 12:45 Pulse Ox 98 09/04/22 12:45 FiO2 Intake & Output 09/03/22 09/04/22 09/04/22 18:59 06:59 18:59 Intake Total 10 425 Output Total 200 Balance -190 425 Intake: IV 10 Invasive Line 3 10 Intake, IV Titration 375 Amount Sodium Chloride 0.9% 1, 375 000 ml @ 75 mls/hr IV . [id number] [facility] Rx#:[id number] Oral 50 Output: Urine 200 Other: Voiding Method Urinal Urinal # Voids 2 2 # Bowel Movements 1 - Labs CBC & Chem 7: 09/02/22 09:03 09/04/22 10:20 Labs: Abnormal Lab Results - Last 24 Hours (Table) 09/04/22 Range/Units 10:20 Sodium 130 L (137-145) mmol/L Potassium 3.4 L (3.5-5.1) mmol/L BUN 4 L (9-20) mg/dL Creatinine 0.62 L (0.66-1.25) mg/dL Glucose 105 H (74-99) mg/dL Calcium 8.1 L (8.4-10.2) mg/dL
[2022-09-04] MEDS: MAGNESIUM SULFATE-D5W PMX 1 GM in DEXTROSE/WATER 1 100ML.BAG IVPB SCH ×2 (17:10→18:32)
[2022-09-04] MEDS: POTASSIUM CHLORIDE ER 20 MEQ TAB.ER PO SCH ×2 (17:10→18:33)
[2022-09-05] MEDS: SODIUM CHLORIDE 0.9% 1,000 ML IV SCH (05:56)
[2022-09-05] MEDS: METOPROLOL TARTRATE 25 MG TAB PO SCH ×2 (08:19→22:25)
[2022-09-05] MEDS: NICOTINE 21MG/24HR PATCH TRANSDERM SCH (08:19)
[2022-09-05] MEDS: ENOXAPARIN 40 MG/0.4 ML SYRINGE SQ SCH (08:20)
[2022-09-05] MEDS: PANTOPRAZOLE 40 MG/10 ML VIAL IVP SCH (08:20)
[2022-09-05] MEDS: THIAMINE 100 MG TAB PO SCH (08:20)
[2022-09-05] MEDS: chlordiazePOXIDE 25 MG CAP PO SCH ×3 (08:20→22:25)
[2022-09-05 10:15] LABS: African American GFR (CKD) >90 (>60 ml/min/1.73 sqM); Anion Gap 8 mmol/L; Blood Urea Nitrogen 4 mg/dL (9-20); Calcium 8.8 mg/dL (8.4-10.2); Carbon Dioxide 25 mmol/L (22-30); Chloride 101 mmol/L (98-107); Glucose 103 mg/dL (74-99); Magnesium 1.7 mg/dL (1.6-2.3); Non-African American GFR(CKD) >90 (>60 ml/min/1.73 sqM); Potassium 4.2 mmol/L (3.5-5.1); Sodium 134 mmol/L (137-145)
[2022-09-05] MEDS: FOLIC ACID 1 MG TAB PO SCH (12:24)
[2022-09-05] MEDS: MULTIVITAMINS, THERA 1 EACH TAB PO SCH (12:24)
--- NOTE | 2022-09-05 15:55 | P.PN ---
Subjective Progress Note Date: 09/05/22 58-year-old male was transferred to [facility] after he had a seizure. Patient's seizures secondary to hyponatremia which is again secondary to excess be drinking. Patient is not willing to quit but his sodium is still low at 126. This came up from 118 in bit over 24 hours. Patient does smoke and half pack of cigarettes per day. Patient admits to drinking 67 beers but as per the family he drinks many more. Last drink was provided that is 2 days ago. 09/02/2022 Patient seen and evaluated in follow-up being maintained on CIWA protocol and per nursing staff continues to receive IV Ativan. Sodium slightly improved at 128 today with nephrology following. Patient clinically improving and will follow-up with repeat labs. Discussed with the patient along with at the bedside about alcohol rehab and discontinuing alcohol abuse and patient refuses. Patient is maintained on Librium and will continue taper. Recommend PT/OT therapy evaluation is nursing staff reports gait is extremely unsteady. Patient is afebrile denies chest pain or shortness of breath. Patient reports to not eating much denies nausea or vomiting. 09/03/2022 Patient is seen and evaluated in follow-up today continue to require IV Ativan and have discussed with nursing staff about using oral Ativan as needed and continuing Librium taper. Patient's sodium is 129 today with nephrology following and patient reports he feels ready to go home. at the bedside reports he can't walk and was almost maximum assist getting up out of the bed. Patient refusing rehab for alcohol rehab at this point. Magnesium at 1.5 and will replace and recommend all of labs in a.m. Recommend PT/OT therapy eval uation again tomorrow. Patient is afebrile denies chest pain or shortness of breath. Patient not eating much and encouraged oral intake and denies any nausea or vomiting. 09/04/2022 Patient is seen in follow-up today maintained on CIWA protocol per nursing staff only received 1 dose of Ativan overnight and patient reports he is feeling fine ready to go home. Patient work with physical therapy again as he is unable to walk on his own with case management following working on possible [facility] rehab and attempting to get a walker. Patient at bedside feels patient is unsafe to return home at this time and patient does continue with some confusion per nursing staff. Patient chest x-ray showing COPD changes with no acute process noted. Awaiting labs from this morning as magnesium was replaced yesterday at 1.5. Potassium is 3.4 and will replace and sodium is improved slightly at 130 today. Will follow-up with repeat labs in the a.m. Recommend physical therapy evaluation tomorrow with possible discharge in 24 hours. 09/05/2022 Patient is seen and evaluated in follow-up today currently sitting up in the chair and has worked with physical therapy continues with weakness and physical therapy now recommending subacute rehab and would like him to go there. Patient is agreeable to this as well. Patient continues with significant gait dysfunction and would likely benefit from aggressive physical therapy for strength and mobility prior to returning home. Insurance information was obtained and currently awaiting to discuss further with about co-pay if they can afford as [facility] accepted. Patient is afebrile denies chest pain or shortness of breath. Patient maintained on CIWA protocol and as needed oral Ativan and not requiring and also maintained on Librium taper. Magnesium replaced and improved at 1.7 today will continue with oral supplementation. Sodium improved at 134 today with nephrology following. Review of systems: Constitutional: No reports of fatigue, fever, or chills Cardiovascular: No reports of chest pain or palpitations Respiratory: No reports of shortness of breath or cough GI: No reports of nausea, vomiting, or diarrhea : No reports of dysuria or retention Neurovascular: reports of generalizedweakness although unable to walk without maximum assist All medications have been reviewed PHYSICAL EXAMINATION: GENERAL: The patient is alert and oriented x3, thin built, cachectic. HEENT: Pupils are round and equally reacting to light. EOMI. No scleral icterus. No conjunctival pallor. Normocephalic, atraumatic. No pharyngeal erythema. No thyromegaly. CARDIOVASCULAR: S1 and S2 present. No murmurs, rubs, or gallops. PULMONARY: Chest is clear to auscultation, no wheezing or crackles. ABDOMEN: Soft, nontender, nondistended, normoactive bowel sounds. No palpable organomegaly. MUSCULOSKELETAL: No joint swelling or deformity. EXTREMITIES: No cyanosis, clubbing, or pedal edema. NEUROLOGICAL: Gross neurological examination did not reveal any focal deficits. Diffusely weak SKIN: No rashes. Assessment: -Alcohol withdrawal seizures. -Severe hyponatremia: Secondary to hypovolemia and Beer Pot[place]ia. Improving at 130 today -Hypomagnesemia -Leukocytosis reactive -Sinus tachycardia secondary to alcohol withdrawal -Acute alcoholic hepatitis -Gait dysfunction -DVT prophylaxis: Lovenox -GI prophylaxis: Protonix -Full code Plan: For alcohol withdrawal continue with as needed Ativan as well as Librium taper. Patient has not required Ativan per nursing staff Nephrology following maintained on normal saline showing some improvement in sodium at 134 today Magnesium is 1.7 and will continue supplementation Discussed with the patient at length about discontinuing and complete cessation of alcohol Patient with significant weakness in gait dysfunction with difficulty ambulating normally independent in ADLs and was evaluated again by physical therapy now recommending subacute rehab for strength and mobility and patient and family are agreeable waiting on insurance authorization and co-pay that is required upfront. [facility] accepted the patient pending payment Possible discharge in the next 24 hours The impression and plan of care has been dictated by Candelaria Ashby, Nurse Practitioner as directed. Dr. Wang MD I have performed a history and examination and MDM of this patient, discussed the same with the dictator, and agree with the dictator's assessment and plan as written ,documented as a scribe. Based on total visit time, I have performed more than 50% of the visit. Objective - Vital Signs Vital signs: Vital Signs Temp 98.2 F 09/05/22 11:36 Pulse 87 09/05/22 11:36 Resp 20 09/05/22 11:36 BP 130/87 09/05/22 11:36 Pulse Ox 98 09/05/22 11:36 FiO2 Intake & Output 09/04/22 09/05/22 09/05/22 18:59 06:59 18:59 Intake Total 790 360 Balance 790 360 Intake: Intake, IV Titration 375 Amount Sodium Chloride 0.9% 1, 375 000 ml @ 75 mls/hr IV . [id number] MITCH Rx#:[id number] Oral 415 360 Other: Voiding Method Urinal Toilet # Voids 2 1 1 - Labs CBC & Chem 7: 09/02/22 09:03 09/05/22 08:36 Labs: Abnormal Lab Results - Last 24 Hours (Table) 09/05/22 Range/Units 08:36 Sodium 134 L (137-145) mmol/L BUN 4 L (9-20) mg/dL Glucose 103 H (74-99) mg/dL
--- NOTE | 2022-09-05 18:06 | P.PN ---
Subjective Patient is seen for follow-up for hyponatremia. Positive history of alcohol abuse. Currently maintained on normal saline with continued improvement in serum sodium. Urine osmolality was 542 with random urine sodium of 110. Sodium is 130 yesterday No significant complaints. Patient states he has not been eating much. Objective - Vital Signs Vital signs: Vital Signs Temp 99.7 F H 09/05/22 16:36 Pulse 97 09/05/22 16:36 Resp 20 09/05/22 16:36 BP 153/87 09/05/22 16:36 Pulse Ox 98 09/05/22 16:36 FiO2 Intake & Output 09/04/22 09/05/22 09/05/22 18:59 06:59 18:59 Intake Total 790 360 Balance 790 360 Intake: Intake, IV Titration 375 Amount Sodium Chloride 0.9% 1, 375 000 ml @ 75 mls/hr IV . [id number] MITCH Rx#:[id number] Oral 415 360 Other: Voiding Method Urinal Toilet # Voids 2 1 1 - Exam Awake, comfortable, no acute distress Examination of the heart S1 and S2 Examination of the lungs bilateral breath sounds are heard Abdomen is soft nontender Examination of the lower extremities shows no evidence of edema [employer] exam grossly intact - Labs CBC & Chem 7: 09/02/22 09:03 09/05/22 08:36 Labs: Abnormal Lab Results - Last 24 Hours (Table) 09/05/22 Range/Units 08:36 Sodium 134 L (137-145) mmol/L BUN 4 L (9-20) mg/dL Glucose 103 H (74-99) mg/dL Assessment and Plan Assessment: 1. Hyponatremia associated with excessive alcohol intake, currently improving with normal saline 2. Hypertension, controlled 3. Alcohol withdrawal seizures 4. Acute alcoholic hepatitis Plan: Continue normal saline D/c in am Encourage increased oral intake Follow-up on sodium from today
[2022-09-05] MEDS: MAGNESIUM OXIDE 400 MG TAB PO SCH (22:25)
[2022-09-06] MEDS: SODIUM CHLORIDE 0.9% 1,000 ML IV SCH ×2 (09:32→09:33)
[2022-09-06] MEDS: NICOTINE 21MG/24HR PATCH TRANSDERM SCH (09:33)
[2022-09-06] MEDS: PANTOPRAZOLE 40 MG/10 ML VIAL IVP SCH (09:33)
[2022-09-06] MEDS: chlordiazePOXIDE 25 MG CAP PO SCH ×3 (09:33→21:20)
[2022-09-06] MEDS: THIAMINE 100 MG TAB PO SCH (09:33)
[2022-09-06] MEDS: ENOXAPARIN 40 MG/0.4 ML SYRINGE SQ SCH (09:33)
[2022-09-06] MEDS: MAGNESIUM OXIDE 400 MG TAB PO SCH ×2 (09:33→21:20)
[2022-09-06] MEDS: METOPROLOL TARTRATE 25 MG TAB PO SCH ×2 (09:33→21:20)
--- NOTE | 2022-09-06 11:52 | P.PN ---
Subjective Patient is seen for follow-up for hyponatremia. Positive history of alcohol abuse. Currently maintained on normal saline with continued improvement in serum sodium. Urine osmolality was 542 with random urine sodium of 110. Sodium is 134 yesterday No significant complaints. Patient states he has been eating better. Objective - Vital Signs Vital signs: Vital Signs Temp 98.6 F 09/06/22 07:45 Pulse 71 09/06/22 07:45 Resp 16 09/06/22 09:33 BP 145/88 09/06/22 07:45 Pulse Ox 95 09/06/22 07:45 FiO2 Intake & Output 09/05/22 09/06/22 09/06/22 18:59 06:59 18:59 Intake Total 540 200 Output Total 475 Balance 540 -475 200 Weight 75 kg Intake: Oral 540 200 Output: Post Void Residual 475 Stool 0 Other: Voiding Method Toilet # Voids 1 - Exam Awake, comfortable, no acute distress Examination of the lower extremities shows no evidence of edema [employer] exam grossly intact - Labs CBC & Chem 7: 09/02/22 09:03 09/05/22 08:36 Assessment and Plan Assessment: 1. Hyponatremia associated with excessive alcohol intake, improved with normal saline. 2. Hypertension, controlled 3. Alcohol withdrawal seizures 4. Acute alcoholic hepatitis Plan: DC saline and continue to encourage increased oral intake.
[2022-09-06 13:09] VITALS: BMI 23.7
[2022-09-06] MEDS: FOLIC ACID 1 MG TAB PO SCH (13:17)
[2022-09-06] MEDS: MULTIVITAMINS, THERA 1 EACH TAB PO SCH (13:17)
--- NOTE | 2022-09-07 06:51 | P.PN ---
Subjective Progress Note Date: 09/06/22 58-year-old male was transferred to [facility] after he had a seizure. Patient's seizures secondary to hyponatremia which is again secondary to excess be drinking. Patient is not willing to quit but his sodium is still low at 126. This came up from 118 in bit over 24 hours. Patient does smoke and half pack of cigarettes per day. Patient admits to drinking 67 beers but as per the family he drinks many more. Last drink was provided that is 2 days ago. 09/02/2022 Patient seen and evaluated in follow-up being maintained on CIWA protocol and per nursing staff continues to receive IV Ativan. Sodium slightly improved at 128 today with nephrology following. Patient clinically improving and will follow-up with repeat labs. Discussed with the patient along with at the bedside about alcohol rehab and discontinuing alcohol abuse and patient refuses. Patient is maintained on Librium and will continue taper. Recommend PT/OT therapy evaluation is nursing staff reports gait is extremely unsteady. Patient is afebrile denies chest pain or shortness of breath. Patient reports to not eating much denies nausea or vomiting. 09/03/2022 Patient is seen and evaluated in follow-up today continue to require IV Ativan and have discussed with nursing staff about using oral Ativan as needed and continuing Librium taper. Patient's sodium is 129 today with nephrology following and patient reports he feels ready to go home. at the bedside reports he can't walk and was almost maximum assist getting up out of the bed. Patient refusing rehab for alcohol rehab at this point. Magnesium at 1.5 and will replace and recommend all of labs in a.m. Recommend PT/OT therapy eval uation again tomorrow. Patient is afebrile denies chest pain or shortness of breath. Patient not eating much and encouraged oral intake and denies any nausea or vomiting. 09/04/2022 Patient is seen in follow-up today maintained on CIWA protocol per nursing staff only received 1 dose of Ativan overnight and patient reports he is feeling fine ready to go home. Patient work with physical therapy again as he is unable to walk on his own with case management following working on possible Home[facility] rehab and attempting to get a walker. Patient at bedside feels patient is unsafe to return home at this time and patient does continue with some confusion per nursing staff. Patient chest x-ray showing COPD changes with no acute process noted. Awaiting labs from this morning as magnesium was replaced yesterday at 1.5. Potassium is 3.4 and will replace and sodium is improved slightly at 130 today. Will follow-up with repeat labs in the a.m. Recommend physical therapy evaluation tomorrow with possible discharge in 24 hours. 09/05/2022 Patient is seen and evaluated in follow-up today currently sitting up in the chair and has worked with physical therapy continues with weakness and physical therapy now recommending subacute rehab and would like him to go there. Patient is agreeable to this as well. Patient continues with significant gait dysfunction and would likely benefit from aggressive physical therapy for strength and mobility prior to returning home. Insurance information was obtained and currently awaiting to discuss further with about co-pay if they can afford as [facility] has accepted. Patient is afebrile denies chest pain or shortness of breath. Patient maintained on CIWA protocol and as needed oral Ativan and not requiring and also maintained on Librium taper. Magnesium replaced and improved at 1.7 today will continue with oral supplementation. Sodium improved at 134 today with nephrology following. 09/06/2022 Patient is seen in follow-up this morning and currently awaiting follow-up physical therapy evaluation. Case management also following this patient has been accepted at [facility] for rehab although working out insurance issues and attempting to submit insurance authorization for [facility]. Patient is currently afebrile with no reports of chest pain or shortness of breath noted. Nephrology following and sodium was 134 and encouraged oral intake and will discontinue IV fluids. Patient is tolerating oral intake and eating and drinking more. Recommend physical therapy daily. No further seizure-like activity was noted patient is medically stable for discharge to [facility]. Patient is not requiring any Ativan and is maintained on Librium taper Review of systems: Constitutional: No reports of fatigue, fever, or chills Cardiovascular: No reports of chest pain or palpitations Respiratory: No reports of shortness of breath or cough GI: No reports of nausea, vomiting, or diarrhea : No reports of dysuria or retention Neurovascular: reports of generalized weakness with difficulty in ambulation All medications have been reviewed PHYSICAL EXAMINATION: GENERAL: The patient is alert and oriented x3, thin built, cachectic. HEENT: Pupils are round and equally reacting to light. EOMI. No scleral icterus. No conjunctival pallor. Normocephalic, atraumatic. No pharyngeal erythema. No thyromegaly. CARDIOVASCULAR: S1 and S2 present. No murmurs, rubs, or gallops. PULMONARY: Chest is clear to auscultation, no wheezing or crackles. ABDOMEN: Soft, nontender, nondistended, normoactive bowel sounds. No palpable organomegaly. MUSCULOSKELETAL: No joint swelling or deformity. EXTREMITIES: No cyanosis, clubbing, or pedal edema. NEUROLOGICAL: Gross neurological examination did not reveal any focal deficits. Diffusely weak SKIN: No rashes. Assessment: -Alcohol withdrawal seizures. -Severe hyponatremia: Secondary to hypovolemia and Beer [place]ia. Improving at 134 -Hypomagnesemia, being replaced -Leukocytosis reactive -Sinus tachycardia secondary to alcohol withdrawal -Acute alcoholic hepatitis -Gait dysfunction -DVT prophylaxis: Lovenox -GI prophylaxis: Protonix -Full code Plan: For alcohol withdrawal continue with as needed Ativan as well as Librium taper. Patient has not required Ativan per nursing staff. Continue Librium taper Nephrology following maintained on normal saline showing some improvement in sodium at 134. We will discontinue fluids Magnesium is 1.7 and will continue daily supplementation Discussed with the patient at length about discontinuing and complete cessation of alcohol Patient with significant weakness in gait dysfunction with difficulty ambulating normally independent in ADLs and was evaluated again by physical therapy now recommending subacute rehab for strength and mobility and patient and family are agreeable waiting on insurance authorization and co-pay that is required upfront. [facility] the patient pending payment and insurance authorization. Discussed with liaison and unable to submit authorization online and is being faxed today. Liaison will obtain case management when authorization has been obtained Possible discharge in the next 24 hours The impression and plan of care has been dictated by Nurse Cassandra Pr actitioner as directed. Dr. Max MD I have performed a history and examination and MDM of this patient, discussed the same with the dictator, and agree with the dictator's assessment and plan as written ,documented as a scribe. Based on total visit time, I have performed more than 50% of the visit. Objective - Vital Signs Vital signs: Vital Signs Temp 98.6 F 09/06/22 07:45 Pulse 71 09/06/22 07:45 Resp 16 09/06/22 07:45 BP 145/88 09/06/22 07:45 Pulse Ox 95 09/06/22 07:45 FiO2 Intake & Output 09/05/22 09/06/22 09/06/22 18:59 06:59 18:59 Intake Total 540 200 Output Total 475 Balance 540 -475 200 Weight 75 kg Intake: Oral 540 200 Output: Post Void Residual 475 Stool 0 Other: # Voids 1 - Labs CBC & Chem 7: 09/02/22 09:03 09/05/22 08:36
[2022-09-07 08:14] LABS: African American GFR (CKD) >90 (>60 ml/min/1.73 sqM); Anion Gap 7 mmol/L; Blood Urea Nitrogen 5 mg/dL (9-20); Calcium 8.9 mg/dL (8.4-10.2); Carbon Dioxide 26 mmol/L (22-30); Chloride 99 mmol/L (98-107); Glucose 103 mg/dL (74-99); Magnesium 1.6 mg/dL (1.6-2.3); Non-African American GFR(CKD) >90 (>60 ml/min/1.73 sqM); Potassium 4.5 mmol/L (3.5-5.1); Sodium 132 mmol/L (137-145)
[2022-09-07] MEDS: ENOXAPARIN 40 MG/0.4 ML SYRINGE SQ SCH (09:29)
[2022-09-07] MEDS: MAGNESIUM OXIDE 400 MG TAB PO SCH ×2 (09:29→21:38)
[2022-09-07] MEDS: NICOTINE 21MG/24HR PATCH TRANSDERM SCH (09:29)
[2022-09-07] MEDS: METOPROLOL TARTRATE 25 MG TAB PO SCH ×2 (09:29→21:38)
[2022-09-07] MEDS: THIAMINE 100 MG TAB PO SCH (09:29)
--- NOTE | 2022-09-07 09:46 | P.PN ---
Subjective Patient is seen in follow-up for hyponatremia. Sodium level fairly stable at 132 today. Oral intake is good. No vomiting or diarrhea. Vital signs are stable. General: No acute distress. HEENT: Head exam is unremarkable. LUNGS: No audible rhonchi or wheezes. HEART: Rate and Rhythm are regular. ABDOMEN: Nontender. EXTREMITITES: No edema. Objective - Vital Signs Vital signs: Vital Signs Temp 98.6 F 09/07/22 07:43 Pulse 87 09/07/22 07:43 Resp 15 09/07/22 07:43 BP 146/93 09/07/22 07:43 Pulse Ox 97 09/07/22 07:43 FiO2 Intake & Output 09/06/22 09/07/22 09/07/22 18:59 06:59 18:59 Intake Total 200 Balance 200 Weight 75 kg Intake: Oral 200 Other: Voiding Method Toilet # Voids 4 2 - Labs CBC & Chem 7: 09/02/22 09:03 09/07/22 07:25 Labs: Abnormal Lab Results - Last 24 Hours (Table) 09/07/22 Range/Units 07:25 Sodium 132 L (137-145) mmol/L BUN 5 L (9-20) mg/dL Creatinine 0.59 L (0.66-1.25) mg/dL Glucose 103 H (74-99) mg/dL Assessment and Plan Plan: Assessment: 1. Hyponatremia from poor solute intake and excessive fluid/alcohol intake. Improved with IV hydration. Urine sodium 110 and urine osmolality 502. TSH normal. Cortisol level normal. 2. Benign hypertension. 3. Acute alcoholic hepatitis. 4. Alcohol withdrawal with seizures. 5. Hypomagnesemia from poor intake and renal losses from chronic alcohol use. On oral magnesium oxide. Plan: Encouraged oral intake. Advised to maintain fluid restriction of less than 50 ounces per day. Resume amlodipine. Follow up outpatient in 1 week post discharge.
[2022-09-07] MEDS: FOLIC ACID 1 MG TAB PO SCH (10:54)
[2022-09-07] MEDS: amLODIPine 5 MG TAB PO SCH (10:54)
[2022-09-07] MEDS: chlordiazePOXIDE 25 MG CAP PO SCH ×2 (10:54→21:38)
[2022-09-07] MEDS: MULTIVITAMINS, THERA 1 EACH TAB PO SCH (10:54)
[2022-09-07] MEDS: PANTOPRAZOLE 40 MG/10 ML VIAL IVP SCH (11:43)
[2022-09-08] MEDS: PANTOPRAZOLE 40 MG TABLET PO SCH (06:15)
[2022-09-08] MEDS: amLODIPine 5 MG TAB PO SCH (09:10)
[2022-09-08] MEDS: MAGNESIUM OXIDE 400 MG TAB PO SCH ×2 (09:10→20:08)
[2022-09-08] MEDS: METOPROLOL TARTRATE 25 MG TAB PO SCH ×2 (09:10→20:08)
[2022-09-08] MEDS: THIAMINE 100 MG TAB PO SCH (09:10)
[2022-09-08] MEDS: chlordiazePOXIDE 25 MG CAP PO SCH ×2 (09:10→20:08)
[2022-09-08] MEDS: ENOXAPARIN 40 MG/0.4 ML SYRINGE SQ SCH (09:10)
[2022-09-08] MEDS: NICOTINE 21MG/24HR PATCH TRANSDERM SCH (09:10)
--- NOTE | 2022-09-08 10:25 | P.PN ---
Subjective Patient is seen in follow-up for hyponatremia. Sodium level fairly stable at 132 yesterday. Oral intake is good. No vomiting or diarrhea. No changes overnight. No active complaints. Vital signs are stable. General: No acute distress. HEENT: Head exam is unremarkable. LUNGS: No audible rhonchi or wheezes. HEART: Rate and Rhythm are regular. ABDOMEN: Nontender. EXTREMITITES: No edema. Objective - Vital Signs Vital signs: Vital Signs Temp 98.6 F 09/08/22 07:02 Pulse 79 09/08/22 07:02 Resp 16 09/08/22 07:02 BP 144/90 09/08/22 07:02 Pulse Ox 98 09/08/22 07:02 FiO2 Intake & Output 09/07/22 09/08/22 09/08/22 18:59 06:59 18:59 Intake Total 1080 1540 180 Balance 1080 1540 180 Intake: Oral 1080 1540 180 Other: Voiding Method Toilet # Voids 6 2 # Bowel Movements 1 - Labs CBC & Chem 7: 09/02/22 09:03 09/07/22 07:25 Assessment and Plan Plan: Assessment: 1. Hyponatremia from poor solute intake and excessive fluid/alcohol intake. Improved with IV hydration. Urine sodium 110 and urine osmolality 502. TSH normal. Cortisol level normal. 2. Benign hypertension. 3. Acute alcoholic hepatitis. 4. Alcohol withdrawal with seizures. 5. Hypomagnesemia from poor intake and renal losses from chronic alcohol use. On oral magnesium oxide. Plan: Encouraged oral intake. Advised to maintain fluid restriction of less than 50 ounces per day. Resume lisinopril. Follow up outpatient in 1 week post discharge.
[2022-09-08] MEDS: lisinopriL 20 MG TAB PO SCH (10:32)
[2022-09-08] MEDS: FOLIC ACID 1 MG TAB PO SCH (11:37)
[2022-09-08] MEDS: MULTIVITAMINS, THERA 1 EACH TAB PO SCH (11:37)
[2022-09-08 12:28] LABS: Basophils % (A) 0 %; Eosinophils # (A) 0.1 k/uL (0-0.7); Eosinophils % (A) 2 %; HCT 33.5 % (39.0-53.0); HGB 10.8 gm/dL (13.0-17.5); Lymphocytes # (A) 1.5 k/uL (1.0-4.8); Lymphocytes % (A) 19 %; MCHC 32.3 g/dL (31.0-37.0); MCV 108.5 fL (80.0-100.0); Macrocytosis Moderate; Monocytes # (A) 0.7 k/uL (0-1.0); Monocytes % (A) 9 %; Neutrophils # (A) 5.5 k/uL (1.3-7.7); Neutrophils % (A) 68 %; RBC 3.09 m/uL (4.30-5.90); RDW 13.3 % (11.5-15.5); WBC 8.1 k/uL (3.8-10.6)
[2022-09-08 12:29] LABS: Platelet Count 523 k/uL (150-450)
[2022-09-08 12:38] LABS: African American GFR (CKD) >90 (>60 ml/min/1.73 sqM); Anion Gap 9 mmol/L; Blood Urea Nitrogen 5 mg/dL (9-20); Calcium 8.7 mg/dL (8.4-10.2); Carbon Dioxide 26 mmol/L (22-30); Chloride 96 mmol/L (98-107); Glucose 107 mg/dL (74-99); Non-African American GFR(CKD) >90 (>60 ml/min/1.73 sqM); Potassium 4.6 mmol/L (3.5-5.1); Sodium 131 mmol/L (137-145)
--- NOTE | 2022-09-08 23:46 | P.PN ---
Subjective Progress Note Date: 09/07/22 58-year-old male was transferred to [facility] after he had a seizure. Patient's seizures secondary to hyponatremia which is again secondary to excess be drinking. Patient is not willing to quit but his sodium is still low at 126. This came up from 118 in bit over 24 hours. Patient does smoke and half pack of cigarettes per day. Patient admits to drinking 67 beers but as per the family he drinks many more. Last drink was provided that is 2 days ago. 09/02/2022 Patient seen and evaluated in follow-up being maintained on CIWA protocol and per nursing staff continues to receive IV Ativan. Sodium slightly improved at 128 today with nephrology following. Patient clinically improving and will follow-up with repeat labs. Discussed with the patient along with at the bedside about alcohol rehab and discontinuing alcohol abuse and patient refuses. Patient is maintained on Librium and will continue taper. Recommend PT/OT therapy evaluation is nursing staff reports gait is extremely unsteady. Patient is afebrile denies chest pain or shortness of breath. Patient reports to not eating much denies nausea or vomiting. 09/03/2022 Patient is seen and evaluated in follow-up today continue to require IV Ativan and have discussed with nursing staff about using oral Ativan as needed and continuing Librium taper. Patient's sodium is 129 today with nephrology following and patient reports he feels ready to go home. at the bedside reports he can't walk and was almost maximum assist getting up out of the bed. Patient refusing rehab for alcohol rehab at this point. Magnesium at 1.5 and will replace and recommend all of labs in a.m. Recommend PT/OT therapy evalua tion again tomorrow. Patient is afebrile denies chest pain or shortness of breath. Patient not eating much and encouraged oral intake and denies any nausea or vomiting. 09/04/2022 Patient is seen in follow-up today maintained on CIWA protocol per nursing staff only received 1 dose of Ativan overnight and patient reports he is feeling fine ready to go home. Patient work with physical therapy again as he is unable to walk on his own with case management following working on possible Home[facility] rehab and attempting to get a walker. Patient at bedside feels patient is unsafe to return home at this time and patient does continue with some confusion per nursing staff. Patient chest x-ray showing COPD changes with no acute process noted. Awaiting labs from this morning as magnesium was replaced yesterday at 1.5. Potassium is 3.4 and will replace and sodium is improved slightly at 130 today. Will follow-up with repeat labs in the a.m. Recommend physical therapy evaluation tomorrow with possible discharge in 24 hours. 09/05/2022 Patient is seen and evaluated in follow-up today currently sitting up in the chair and has worked with physical therapy continues with weakness and physical therapy now recommending subacute rehab and would like him to go there. Patient is agreeable to this as well. Patient continues with significant gait dysfunction and would likely benefit from aggressive physical therapy for strength and mobility prior to returning home. Insurance information was obtained and currently awaiting to discuss further with about co-pay if they can afford as [facility] has accepted. Patient is afebrile denies chest pain or shortness of breath. Patient maintained on CIWA protocol and as needed oral Ativan and not requiring and also maintained on Librium taper. Magnesium replaced and improved at 1.7 today will continue with oral supplementation. Sodium improved at 134 today with nephrology following. 09/06/2022 Patient is seen in follow-up this morning and currently awaiting follow-up physical therapy evaluation. Case management also following this patient has been accepted at [facility] for rehab although working out insurance issues and attempting to submit insurance authorization for [facility]. Patient is currently afebrile with no reports of chest pain or shortness of breath noted. Nephrology following and sodium was 134 and encouraged oral intake and will discontinue IV fluids. Patient is tolerating oral intake and eating and drinking more. Recommend physical therapy daily. No further seizure-like activity was noted patient is medically stable for discharge to [facility]. Patient is not requiring any Ativan and is maintained on Librium taper 09/07/2022 Patient is currently resting in the bed. Awake alert and oriented x3. No c omplaints of nausea or vomiting. Oral diet is also improving. Follow-up with physical therapy. Patient is awaiting to be transferred to [facility]. Currently being continued on Librium 25 mg twice daily. Laboratory data showed sodium 132 potassium 4.5 chloride 99 bicarb is 26 BUN 5 and creatinine 0.59 and blood sugar is 103. Magnesium 1.6., Which is being replaced. Nephrology is on board. Current medications reviewed. Review of systems: Constitutional: No reports of fatigue, fever, or chills Cardiovascular: No reports of chest pain or palpitations Respiratory: No reports of shortness of breath or cough GI: No reports of nausea, vomiting, or diarrhea : No reports of dysuria or retention Neurovascular: reports of generalized weakness with difficulty in ambulation All medications have been reviewed PHYSICAL EXAMINATION: GENERAL: The patient is alert and oriented x3, thin built, cachectic. HEENT: Pupils are round and equally reacting to light. EOMI. No scleral icterus. No conjunctival pallor. Normocephalic, atraumatic. No pharyngeal erythema. No thyromegaly. CARDIOVASCULAR: S1 and S2 present. No murmurs, rubs, or gallops. PULMONARY: Chest is clear to auscultation, no wheezing or crackles. ABDOMEN: Soft, nontender, nondistended, normoactive bowel sounds. No palpable o rganomegaly. MUSCULOSKELETAL: No joint swelling or deformity. EXTREMITIES: No cyanosis, clubbing, or pedal edema. NEUROLOGICAL: Gross neurological examination did not reveal any focal deficits. Diffusely weak SKIN: No rashes. Assessment: -Alcohol withdrawal seizures. -Severe hyponatremia: Secondary to hypovolemia and Beer [place]ia. Improving -Hypomagnesemia, being replaced -Leukocytosis reactive -Sinus tachycardia secondary to alcohol withdrawal -Acute alcoholic hepatitis -Gait dysfunction -DVT prophylaxis: Lovenox -GI prophylaxis: Protonix -Full code Plan: For alcohol withdrawal continue with as needed Ativan as well as Librium taper. Patient has not required Ativan per nursing staff. Continue Librium taper Follow-up sodium level and nephrology is on board. Replace magnesium. Discussed with the patient at length about discontinuing and complete cessation of alcohol Patient with significant weakness in gait dysfunction with difficulty ambulating normally independent in ADLs and was evaluated again by physical therapy now recommending subacute rehab for strength and mobility and patient and family are agreeable waiting on insurance authorization and co-pay that is required upfront. [facility] accepted the patient pending payment and insurance authorization. Discussed with liaison and unable to submit authorization online and is being faxed. Liaison will obtain case management when authorization has been obtained Objective - Vital Signs Vital signs: Vital Signs Temp 98.4 F 09/07/22 13:51 Pulse 78 09/07/22 13:51 Resp 15 09/07/22 13:51 BP 134/87 09/07/22 13:51 Pulse Ox 100 09/07/22 13:51 FiO2 Intake & Output 09/07/22 09/07/22 09/08/22 06:59 18:59 06:59 Intake Total 1080 Balance 1080 Intake: Oral 1080 Other: Voiding Method Toilet # Voids 2 6 # Bowel Movements 1 - Labs CBC & Chem 7: 09/08/22 10:56 09/08/22 10:56 Labs: Abnormal Lab Results - Last 24 Hours (Table) 09/07/22 Range/Units 07:25 Sodium 132 L (137-145) mmol/L BUN 5 L (9-20) mg/dL Creatinine 0.59 L (0.66-1.25) mg/dL Glucose 103 H (74-99) mg/dL
--- NOTE | 2022-09-08 23:47 | P.PN ---
Subjective Progress Note Date: 09/08/22 58-year-old male was transferred to [facility] after he had a seizure. Patient's seizures secondary to hyponatremia which is again secondary to excess be drinking. Patient is not willing to quit but his sodium is still low at 126. This came up from 118 in bit over 24 hours. Patient does smoke and half pack of cigarettes per day. Patient admits to drinking 67 beers but as per the family he drinks many more. Last drink was provided that is 2 days ago. 09/02/2022 Patient seen and evaluated in follow-up being maintained on CIWA protocol and per nursing staff continues to receive IV Ativan. Sodium slightly improved at 128 today with nephrology following. Patient clinically improving and will follow-up with repeat labs. Discussed with the patient along with at the bedside about alcohol rehab and discontinuing alcohol abuse and patient refuses. Patient is maintained on Librium and will continue taper. Recommend PT/OT therapy evaluation is nursing staff reports gait is extremely unsteady. Patient is afebrile denies chest pain or shortness of breath. Patient reports to not eating much denies nausea or vomiting. 09/03/2022 Patient is seen and evaluated in follow-up today continue to require IV Ativan and have discussed with nursing staff about using oral Ativan as needed and continuing Librium taper. Patient's sodium is 129 today with nephrology following and patient reports he feels ready to go home. at the bedside reports he can't walk and was almost maximum assist getting up out of the bed. Patient refusing rehab for alcohol rehab at this point. Magnesium at 1.5 and will replace and recommend all of labs in a.m. Recommend PT/OT therapy evalua tion again tomorrow. Patient is afebrile denies chest pain or shortness of breath. Patient not eating much and encouraged oral intake and denies any nausea or vomiting. 09/04/2022 Patient is seen in follow-up today maintained on CIWA protocol per nursing staff only received 1 dose of Ativan overnight and patient reports he is feeling fine ready to go home. Patient work with physical therapy again as he is unable to walk on his own with case management following working on possible [facility] rehab and attempting to get a walker. Patient at bedside feels patient is unsafe to return home at this time and patient does continue with some confusion per nursing staff. Patient chest x-ray showing COPD changes with no acute process noted. Awaiting labs from this morning as magnesium was replaced yesterday at 1.5. Potassium is 3.4 and will replace and sodium is improved slightly at 130 today. Will follow-up with repeat labs in the a.m. Recommend physical therapy evaluation tomorrow with possible discharge in 24 hours. 09/05/2022 Patient is seen and evaluated in follow-up today currently sitting up in the chair and has worked with physical therapy continues with weakness and physical therapy now recommending subacute rehab and would like him to go there. Patient is agreeable to this as well. Patient continues with significant gait dysfunction and would likely benefit from aggressive physical therapy for strength and mobility prior to returning home. Insurance information was obtained and currently awaiting to discuss further with about co-pay if they can afford as [facility] has accepted. Patient is afebrile denies chest pain or shortness of breath. Patient maintained on CIWA protocol and as needed oral Ativan and not requiring and also maintained on Librium taper. Magnesium replaced and improved at 1.7 today will continue with oral supplementation. Sodium improved at 134 today with nephrology following. 09/06/2022 Patient is seen in follow-up this morning and currently awaiting follow-up physical therapy evaluation. Case management also following this patient has been accepted at [facility] for rehab although working out insurance issues and attempting to submit insurance authorization for [facility]. Patient is currently afebrile with no reports of chest pain or shortness of breath noted. Nephrology following and sodium was 134 and encouraged oral intake and will discontinue IV fluids. Patient is tolerating oral intake and eating and drinking more. Recommend physical therapy daily. No further seizure-like activity was noted patient is medically stable for discharge to [facility]. Patient is not requiring any Ativan and is maintained on Librium taper 09/07/2022 Patient is currently resting in the bed. Awake alert and oriented x3. No c omplaints of nausea or vomiting. Oral diet is also improving. Follow-up with physical therapy. Patient is awaiting to be transferred to [facility]. Currently being continued on Librium 25 mg twice daily. Laboratory data showed sodium 132 potassium 4.5 chloride 99 bicarb is 26 BUN 5 and creatinine 0.59 and blood sugar is 103. Magnesium 1.6., Which is being replaced. Nephrology is on board. 09/08/2022 Patient is sitting in the chair comfortably. Awake alert and oriented x3. No complaints of chest pain or shortness of breath. Blood pressure is better controlled. Patient is being continued on Librium tapering course. Continued on PT OT and possible discharge to rehab on Friday. Otherwise laboratory data showed sodium level 131 potassium 4.6 chloride 96 bicarb is 26 BUN 5 and creatinine 0.63. Patient is off IV fluids. Nephrology is on board. Current medications reviewed. Review of systems: Constitutional: No reports of fatigue, fever, or chills Cardiovascular: No reports of chest pain or palpitations Respiratory: No reports of shortness of breath or cough GI: No reports of nausea, vomiting, or diarrhea : No reports of dysuria or retention Neurovascular: reports of generalized weakness with difficulty in ambulation All medications have been reviewed PHYSICAL EXAMINATION: GENERAL: The patient is alert and oriented x3, thin built, cachectic. HEENT: Pupils are round and equally reacting to light. EOMI. No scleral icterus. No conjunctival pallor. Normocephalic, atraumatic. No pharyngeal erythema. No thyromegaly. CARDIOVASCULAR: S1 and S2 present. No murmurs, rubs, or gallops. PULMONARY: Chest is clear to auscultation, no wheezing or crackles. ABDOMEN: Soft, nontender, nondistended, normoactive bowel sounds. No palpable organomegaly. MUSCULOSKELETAL: No joint swelling or deformity. EXTREMITIES: No cyanosis, clubbing, or pedal edema. NEUROLOGICAL: Gross neurological examination did not reveal any focal deficits. Diffusely weak SKIN: No rashes. Assessment: -Alcohol withdrawal seizures. -Severe hyponatremia: Secondary to hypovolemia and Beer [place]. Improving -Hypomagnesemia, being replaced -Leukocytosis reactive -Sinus tachycardia secondary to alcohol withdrawal -Acute alcoholic hepatitis -Gait dysfunction -DVT prophylaxis: Lovenox -GI prophylaxis: Protonix -Full code Plan: For alcohol withdrawal continue with as needed Ativan as well as Librium taper. Patient has not required Ativan per nursing staff. Continue Librium taper Follow-up sodium level and nephrology is on board. Replace magnesium. Discussed with the patient at length about discontinuing and complete cessation of alcohol Patient with significant weakness in gait dysfunction with difficulty ambulating normally independent in ADLs and was evaluated again by physical therapy now recommending subacute rehab for strength and mobility and patient and family are agreeable waiting on insurance authorization and co-pay that is required upfront. [facility] has accepted the patient pending payment and insurance authorization. Discussed with liaison and unable to submit authorization online and is being faxed. Liaison will obtain case management when authorization has been obtained Objective - Vital Signs Vital signs: Vital Signs Temp 97.6 F 09/08/22 13:49 Pulse 82 09/08/22 13:49 Resp 18 09/08/22 13:49 BP 133/86 09/08/22 13:49 Pulse Ox 99 09/08/22 13:49 FiO2 Intake & Output 09/07/22 09/08/22 09/08/22 18:59 06:59 18:59 Intake Total 1080 1540 540 Balance 1080 1540 540 Intake: Oral 1080 1540 540 Other: Voiding Method Toilet # Voids 6 2 6 # Bowel Movements 1 2 - Labs CBC & Chem 7: 09/08/22 10:56 09/08/22 10:56 Labs: Abnormal Lab Results - Last 24 Hours (Table) 09/08/22 09/08/22 Range/Units 10:56 10:56 RBC 3.09 L (4.30-5.90) m/uL Hgb 10.8 L (13.0-17.5) gm/dL Hct 33.5 L (39.0-53.0) % MCV 108.5 H (80.0-100.0) fL Plt Count 523 H D (150-450) k/uL Sodium 131 L (137-145) mmol/L Chloride 96 L (98-107) mmol/L BUN 5 L (9-20) mg/dL Creatinine 0.63 L (0.66-1.25) mg/dL Glucose 107 H (74-99) mg/dL
[2022-09-09] MEDS: PANTOPRAZOLE 40 MG TABLET PO SCH (07:14)
[2022-09-09 08:29] LABS: African American GFR (CKD) >90 (>60 ml/min/1.73 sqM); Anion Gap 7 mmol/L; Blood Urea Nitrogen 6 mg/dL (9-20); Calcium 9.1 mg/dL (8.4-10.2); Carbon Dioxide 29 mmol/L (22-30); Chloride 98 mmol/L (98-107); Glucose 112 mg/dL (74-99); Magnesium 1.6 mg/dL (1.6-2.3); Non-African American GFR(CKD) >90 (>60 ml/min/1.73 sqM); Potassium 5.3 mmol/L (3.5-5.1); Sodium 134 mmol/L (137-145)
[2022-09-09] MEDS: METOPROLOL TARTRATE 25 MG TAB PO SCH (09:36)
[2022-09-09] MEDS: THIAMINE 100 MG TAB PO SCH (09:36)
[2022-09-09] MEDS: NICOTINE 21MG/24HR PATCH TRANSDERM SCH (09:37)
[2022-09-09] MEDS: ENOXAPARIN 40 MG/0.4 ML SYRINGE SQ SCH (09:37)
[2022-09-09] MEDS: amLODIPine 5 MG TAB PO SCH (09:37)
[2022-09-09] MEDS: MAGNESIUM OXIDE 400 MG TAB PO SCH (09:37)
[2022-09-09] MEDS: chlordiazePOXIDE 25 MG CAP PO SCH (09:37)
[2022-09-09] MEDS: lisinopriL 20 MG TAB PO SCH (09:37)
[2022-09-09] MEDS ORDERED: MAGNESIUM OXIDE 400 MG TAB PO SCH (10:00)
[2022-09-09] MEDS ORDERED: SODIUM ZIRCONIUM CYCLOSILICATE 10 GM PACKET PO ONE (10:00)
[2022-09-09] MEDS: FOLIC ACID 1 MG TAB PO SCH (10:47)
[2022-09-09] MEDS: MULTIVITAMINS, THERA 1 EACH TAB PO SCH (10:48)
--- NOTE | 2022-09-09 12:14 | P.DS ---
Providers Date of admission: 08/31/22 18:59 Expected date of discharge: 09/09/22 Attending physician: Pam Piña Consults: 08/31/22 18:59 Consult Physician Urgent Consulting Provider: Marisol Rubin Consult Reason/Comments: Hyponatremia, seizure Do you want consulting provider notified?: Yes Primary care physician: Bert Daniel [facility] Course: Final diagnosis -Alcohol withdrawal seizures. Resolved -Severe hyponatremia: Secondary to hypovolemia and Beer [place]. Improved -Hypomagnesemia, improved -Leukocytosis reactive -Sinus tachycardia secondary to alcohol withdrawal, improved -Hypertension history -Acute alcoholic hepatitis -Gait dysfunction -DVT prophylaxis -GI prophylaxis -Full code Discharge disposition Patient is being discharged in a stable condition with guarded prognosis to [facility]. Patient will follow-up with Dr. Daniel in the outpatient setting upon discharge. Patient is to continue to avoid all alcohol intake. Recommend repeat labs in the next few days to monitor CMP and CBC. Total time taken is greater than 35 minutes. Hospital course This is a 52-year-old male who was recently admitted with hyponatremia and alc oholic seizures with acute alcohol withdrawal and being closely monitored. Patient was maintained on CIWA protocol and has not required Ativan for quite some time. Patient is on a Librium taper and will continue 25 mg twice daily for today and 25 mg tomorrow and then may discontinue. Patient also with significant weakness and hypomagnesemia with physical therapy following recommend alcohol cessation along with ECF for continued strength and mobility. Patient and are agreeable and patient has been accepted at [facility]. Insurance authorization has been obtained and patient will be discharged today. Recommend follow-up labs in the next few days to monitor CBC and CMP. Recommend fluid restrictions of 1500 mL's per day and continue on oral magnesium supplementation. Currently no reports of chest pain, shortness of breath, or palpitations. Patient is afebrile. No reports of nausea or vomiting and patient is tolerating diet. Patient will be going to [facility] today. Physical exam: Gen: This is a 52-year-old male who is awake, alert and oriented 3, thin built, elderly appearing HEENT: Head is atraumatic, normocephalic. Pupils equal, round. Sclerae is anicteric. NECK: Supple. No JVD. No lymphadenopathy. No thyromegaly. LUNGS: Clear to auscultation. No wheezes or rhonchi. No intercostal retractions. HEART: Regular rate and rhythm. No murmur. ABDOMEN: Soft. Bowel sounds are present. No masses. No tenderness. EXTREMITIES: No pedal edema. No calf tenderness. NEUROLOGICAL: Patient is awake, alert and oriented x3. Cranial nerves 2 through 12 are grossly intact. Diffusely weak Please refer to medication reconciliation sheet for a list of medications. The impression and plan of care has been dictated by Candelaria Ashby, Nurse Practitioner as directed. Dr. Max MD I have performed a history and examination and MDM of this patient, discussed the same with the dictator, and agree with the dictator's assessment and plan as written ,documented as a scribe. Based on total visit time, I have performed more than 50% of the visit. Patient Condition at Discharge: Stable Plan - Discharge Summary New Discharge Prescriptions: New Folic Acid 1 mg PO DAILY@1200 #30 tab Multivitamins, Thera [Multivitamin (formulary)] 1 each PO DAILY@1200 #30 tab Thiamine [Vitamin B-1] 100 mg PO DAILY #30 tab Pantoprazole [Protonix] 40 mg PO AC-BRKFST tab Nicotine 21Mg/24Hr Patch [Habitrol] 1 patch TRANSDERM DAILY patch Metoprolol Tartrate [Lopressor] 25 mg PO BID 30 Days #60 tab chlordiazePOXIDE HCl [Librium] 25 mg PO BID 2 Days #3 cap Magnesium Oxide [Mag-Ox] 400 mg PO TID tab Continue amLODIPine [Norvasc] 5 mg PO W/SUPPER Ibuprofen [Motrin] 800 mg PO Q8H PRN PRN Reason: Pain lisinopriL 40 mg PO DAILY Discontinued Sodium Chloride Tab 1 gm PO BID Discharge Medication List Ibuprofen [Motrin] 800 mg PO Q8H PRN 08/31/22 [History] amLODIPine [Norvasc] 5 mg PO W/SUPPER 08/31/22 [History] lisinopriL 40 mg PO DAILY 08/31/22 [History] Folic Acid 1 mg PO DAILY@1200 #30 tab 09/04/22 [Rx] Metoprolol Tartrate [Lopressor] 25 mg PO BID 30 Days #60 tab 09/04/22 [Rx] Multivitamins, Thera [Multivitamin (formulary)] 1 each PO DAILY@1200 #30 tab 09/04/22 [Rx] Nicotine 21Mg/24Hr Patch [Habitrol] 1 patch TRANSDERM DAILY patch 09/04/22 [Rx] Thiamine [Vitamin B-1] 100 mg PO DAILY #30 tab 09/04/22 [Rx] Magnesium Oxide [Mag-Ox] 400 mg PO TID tab 09/09/22 [Rx] Pantoprazole [Protonix] 40 mg PO AC-BRKFST tab 09/09/22 [Rx] chlordiazePOXIDE HCl [Librium] 25 mg PO BID 2 Days #3 cap 09/09/22 [Rx] Follow up Appointment(s)/Referral(s): Bert Daniel DO [Primary Care Provider] - 09/12/22 1:15 pm Ambulatory/Diagnostic Orders: Comprehensive Metabolic Panel [LAB.AMB] Time Frame: 3 Days, Location: None Selected Patient Instructions/Handouts: Seizure/Epilepsy Discharge Instructions & Follow-Up, Alcohol Withdrawal (DC) Activity/Diet/Wound Care/Special Instructions: Patient is going to [facility] Activity as tolerated Follow-up with primary care provider on discharge Continue with Librium taper and avoid all alcohol intake, continue Librium 25 mg twice daily for 1 day, then 25 mg for one day then discontinue Recommend follow-up labs Discharge/Stand Alone Forms: AA Meetings [facility] Resources, Outpatient Counseling, In Substance Abuse Facilities, Personal [employer] Discharge Disposition: TRANSFER TO SNF/ECF
--- NOTE | 2022-09-09 12:27 | P.PN ---
Subjective Patient is seen in follow-up for hyponatremia. Sodium level 134 today. Oral intake is good. No vomiting or diarrhea. No changes overnight. No active complaints. Awaits placement. Vital signs are stable. General: No acute distress. HEENT: Head exam is unremarkable. LUNGS: No audible rhonchi or wheezes. HEART: Rate and Rhythm are regular. ABDOMEN: Nontender. EXTREMITITES: No edema. Objective - Vital Signs Vital signs: Vital Signs Temp 98.3 F 09/09/22 07:14 Pulse 71 09/09/22 07:14 Resp 19 09/09/22 07:14 BP 146/89 09/09/22 07:14 Pulse Ox 98 09/09/22 07:14 FiO2 Intake & Output 09/08/22 09/09/22 09/09/22 18:59 06:59 18:59 Intake Total 540 400 620 Balance 540 400 620 Intake: Oral 540 400 620 Other: # Voids 6 3 # Bowel Movements 2 - Labs CBC & Chem 7: 09/08/22 10:56 09/09/22 07:24 Labs: Abnormal Lab Results - Last 24 Hours (Table) 09/08/22 09/08/22 09/09/22 Range/Units 10:56 10:56 07:24 RBC 3.09 L (4.30-5.90) m/uL Hgb 10.8 L (13.0-17.5) gm/dL Hct 33.5 L (39.0-53.0) % MCV 108.5 H (80.0-100.0) fL Plt Count 523 H D (150-450) k/uL Sodium 131 L 134 L (137-145) mmol/L Potassium 5.3 H (3.5-5.1) mmol/L Chloride 96 L (98-107) mmol/L BUN 5 L 6 L (9-20) mg/dL Creatinine 0.63 L (0.66-1.25) mg/dL Glucose 107 H 112 H (74-99) mg/dL Assessment and Plan Plan: Assessment: 1. Hyponatremia from poor solute intake and excessive fluid/alcohol intake. Improved with IV hydration. Urine sodium 110 and urine osmolality 502. TSH normal. Cortisol level normal. 2. Benign hypertension. Stable. 3. Acute alcoholic hepatitis. 4. Alcohol withdrawal with seizures. 5. Hypomagnesemia from poor intake and renal losses from chronic alcohol use. On oral magnesium oxide. Plan: Encouraged oral intake. Advised to maintain fluid restriction of less than 50 ounces per day. Resumed lisinopril yesterday. Follow up outpatient in 1 week post discharge.
[2022-09-09 14:21] VITALS: BP 132/84; PULSE 80; RESP 18; TEMP 98.7
[2022-09-10] MEDS ORDERED: lisinopriL 20 MG TAB PO SCH (09:00)
[2022-09-10] MEDS ORDERED: amLODIPine 10 MG TAB PO SCH (09:00)
== END 2022-09-09 15:04 | DRG 897 ==
LOC: EC 16:03 → 4SSUR 18:59 → 3SCARD 09-01 16:31 → 4SSUR 09-05 18:52
PROVIDERS: ADMIT Hospitalist; ATTEND Hospitalist
DX: F10.239 Alcohol dependence with withdrawal, unspecified (principal); R64 Cachexia; E87.1 Hypo-osmolality and hyponatremia; K70.10 Alcoholic hepatitis without ascites; G40.909 Epilepsy, unspecified, not intractable, without status epilepticus; J44.9 Chronic obstructive pulmonary disease, unspecified; Z28.310 Unvaccinated for COVID-19; I10 Essential (primary) hypertension; E86.1 Hypovolemia; E83.42 Hypomagnesemia; E87.5 Hyperkalemia; F41.9 Anxiety disorder, unspecified; Y90.0 Blood alcohol level of less than 20 mg/100 ml; R26.2 Difficulty in walking, not elsewhere classified; F17.210 Nicotine dependence, cigarettes, uncomplicated; Z71.6 Tobacco abuse counseling; Z79.899 Other long term (current) drug therapy; Z71.41 Alcohol abuse counseling and surveillance of alcoholic
CPT/HCPCS: 36415; 71045; 80048; 80053; 80306; 80320; 81003; 82533; 83735; 83930; 83935; 84133; 84300; 84443; 84550; 85025; 85027; 93005; 94760; 96374; 96376; 99285